=== PATIENT | female | born 1940 | race Caucasian/White ===

== ENCOUNTER 2018-08-04 18:02 | Inpatient (IN) | payer MEDICARE ==
[2018-08-04 19:30] LABS: BASO % 0.4 % (0.0-2.0); EOS % 0.1 % (0.0-4.0); HEMOGLOBIN 10.6 g/dL (11.0-16.0); LYMPH % 10.7 % (20.0-40.0); MEAN CELL VOLUME 85.6 fL (81.0-99.0); MEAN CORPUSCULAR HGB CONC 32.7 g/dL (33.0-37.0); MEAN PLATELET VOLUME 9.5 fL (7.2-11.7); MONO # 0.4 K/uL (0.0-0.8); NEUT # 7.5 K/uL (1.8-7.0); NEUT % 83.8 % (50.0-75.0); RBC 3.79 Mil/uL (3.80-5.20); RED CELL DISTRIBUTION WIDTH 13.4 % (11.5-14.5); WHITE BLOOD COUNT 8.9 K/uL (4.8-10.8)
[2018-08-04 19:41] LABS: ALB/GLOB RATIO 0.8 (1.0-2.1); ALBUMIN 4.1 g/dL (3.5-5.0); CALCIUM 9.2 mg/dl (8.6-10.4)
[2018-08-04 19:45] LABS: INR 1.1; PROTHROMBIN TIME 12.4 SECONDS (9.7-12.2)
[2018-08-04 19:54] LABS: CK-MB 1.07 ng/mL (0.0-3.38); TROPONIN I 0.045 ng/mL (0.00-0.120)
--- NOTE | 2018-08-04 21:09 | C.PDOC ---
History Of Present Illness 77 year old female is brought to the ED by EMS accompanied by her daughter for evaluation of chest pain that started earlier today. Patient reports chest pain radiated towards her left breast, worsens with palpation and deep breaths. Patient's daughter expresses concern of frequent falls due to patient having bruises to her forehead and right knee, however when asked patient denies any falls. Patient was given aspirin and SL nitro in the field. She is also c/o upper back pain. Patient denies fever, chills, cough, abdominal pain, nausea/vomiting, SOB, palpitations, rashes, injuries/falls. PMHx: DM, HTN, RA, dementia Time Seen by Provider: 08/04/18 18:49 Chief Complaint (Nursing): Chest Pain History Per: Patient, EMS, Family History/Exam Limitations: no limitations Onset/Duration Of Symptoms: Hrs Current Symptoms Are (Timing): Still Present Quality: "Pain" Exacerbating Factors: Movement, Deep Breathing Nitro Therapy Administered: 1, Per EMS Recent travel outside of the [place]: No Additional History Per: Patient Past Medical History Reviewed: Historical Data, Nursing Documentation, Vital Signs Vital Signs: Last Vital Signs Temp 97 F L 08/04/18 18:10 Pulse 105 H 08/04/18 18:10 Resp 20 08/04/18 18:10 BP 154/71 H 08/04/18 18:10 Pulse Ox 98 08/04/18 18:10 - Medical History PMH: Arthritis, Dementia, Diabetes, HTN, Osteoporosis Surgical History: Cholecystectomy Family History: States: Unknown Family Hx - Social History Hx Tobacco Use: No Hx Alcohol Use: No Hx Substance Use: No - Immunization History Hx Tetanus Toxoid Vaccination: No Hx Influenza Vaccination: No Hx Pneumococcal Vaccination: No Review Of Systems Constitutional: Negative for: Fever, Chills Eyes: Negative for: Vision Change Cardiovascular: Positive for: Chest Pain. Negative for: Palpitations Respiratory: Negative for: Shortness of Breath Gastrointestinal: Negative for: Nausea, Vomiting, Abdominal Pain Skin: Negative for: Rash Neurological: Negative for: Weakness, Numbness, Headache, Dizziness Physical Exam - Physical Exam Appears: Non-toxic, No Acute Distress Skin: Normal Color, Warm, Dry, No Rash Head: Normacephalic, Other (mid forehead mild contusion ) Eye(s): bilateral: Normal Inspection, PERRL, EOMI, Other (no raccoon eyes) Ear(s): Bilateral: Normal, Other (no gonzalez signs) Oral Mucosa: Moist Neck: Normal ROM, No Midline Cervical Tenderness, Supple Chest: Symmetrical, Tenderness (mid sternum to palpation) Cardiovascular: Rhythm Regular (mild tachycardic), Murmur (systolic 4/6) Respiratory: Normal Breath Sounds, No Rales, No Rhonchi, No Wheezing Gastrointestinal/Abdominal: Soft, No Tenderness, No Guarding, No Rebound Back: No CVA Tenderness Extremity: Normal ROM, No Tenderness, Capillary Refill (< 2 seconds), No Swelling Pulses: Left Dorsalis Pedis: Normal, Right Dorsalis Pedis: Normal Neurological/Psych: Oriented x3, Normal Speech, Normal Cognition, Other (no focal deficits) Gait: Steady ED Course And Treatment - Laboratory Results Result Diagrams: 08/04/18 19:26 08/04/18 19: Lab Results: PT 12.4 SECONDS (9.7-12.2) H 08/04/18: INR 1.1 08/04/18: APTT 26 SECONDS (21-34) 08/04/18 19: Troponin I 0.0450 ng/mL (0.00-0.120) 08/04/18: NT-Pro-B Natriuret Pep 532 pg/mL (0-900) 08/04/18 19: Total Bilirubin 0.6 mg/dL (0.2-1.3) 08/04/18 19: AST 23 U/L (14-36) 08/04/18: ALT 10 U/L (9-52) 08/04/18: Alkaline Phosphatase 57 U/L (38-126) 08/04/18 19: Total Protein 8.9 g/dL (6.3-8.3) H 08/04/18: Albumin 4.1 g/dL (3.5-5.0) 08/04/18: Globulin 4.8 gm/dL (2.2-3.9) H 08/04/18 19: Albumin/Globulin Ratio 0.8 (1.0-2.1) L 08/04/18 19: ECG: Interpreted By Me, Viewed By Me ECG Rhythm: Sinus Rhythm Interpretation Of ECG: normal axus, no acute ST/T wave changes Rate From EC (BPM) O2 Sat by Pulse Oximetry: 98 (ON RA) Pulse Ox Interpretation: Normal - CT Scan/US CT head Other Rad Studies (CT/US): Read By Radiologist, Radiology Report Reviewed CT/US Interpretation: CLINICAL HISTORY: Trauma. TECHNIQUE: Multiple axial brain CT scan sections were obtained from base to vertex without contrast administ ration. COMMENTS: The study shows normal configuration of sella turcica. There are no intra or extra-axial collections. There is no mass effect or midline shift. There is no evidence of hematoma formation. No hydrocephalus is present. No abnormal calcifications are noted. Changes of diffuse cerebellar and cerebral atrophy are noted with symmetrically dilated ventricles and cortical sulci. There are mild bilateral periventricular hypolucencies compatible with white matter ischemic disease. No significant other abnormalities are seen either in the posterior fossa or supratentorial compartment. There is mucosal thickening and partial opacification involving bilateral ethmoid air cells and m axillary sinuses consistent with chronic sinusitis. 1 cm mucoid retention cyst versus polyp is noted within the left maxillary sinus. IMPRESSION: 1. Diffuse age-appropriate cerebellar and cerebral atrophy. 2. Bilateral periventricular hypolucencies compatible with chronic white matter ischemic disease. 3. Sinusitis as above. 4. No evidence of acute intracranial pathology. Thank you for your kind referral of this patient. . Electronically signed on Aug 04, 2018 8:29:37 PM EST by: Donnie Jimenez M.D., ESME Certified By ABR & CBCCT. Fellowship Trained MRI and CT Specialist Progress Note: Plan: - CT head. - CXR. - LAbs. - EKG Disposition - Disposition Forms: [employer] ([place]ian) - Scribe Statement The provider has reviewed the documentation as recorded by the Scribe Jhon Moss All medical record entries made by the Scribe were at my direction and personally dictated by me. I have reviewed the chart and agree that the record accurately reflects my personal performance of the history, physical exam, medical decision making, and the department course for this patient. I have also personally directed, reviewed, and agree with the discharge instructions and disposition.
[2018-08-04] MEDS ORDERED: Iodixanol 320 MG/ML 100 ML BOTTLE IV ONE (22:06)
[2018-08-04] MEDS: Tramadol 25 mg PO PRN (23:45)
--- NOTE | 2018-08-05 01:19 | CP.PCM.HP ---
<Cornell Lopez - Last Filed: 08/05/18 03:42> History of Present Illness - History of Present Illness History of Present Illness: PGY-1H&P note for Dr Elias hospitalist service Patient is 77 year old female with pmhx of RA, OA, DM, HTN, HLD, catarats bilateral eyes that came to the ED today for chest pain and back pain that started at 4 pm. Chest pain is located on right and left side of chest, reproducible with palpation and worsens with breathing, Daughter Lucy is at bedside at time of encounter, states her mother has been at home for the past few days, and decided to leave the house today and walk in the cold. Daughter noticed patient had a new bruise like lesion in her right frontal area of face and in right knee after she came back home. Patient denies falling, states she has fallen in the past but a long time ago. Patient admits to dryness in both eyes and mouth. Denies fever, chills, headaches, abdominal pain, cough, n/v/d/c. PMD: Dr Anne Pmhx: RA, OA, DM, HTN, HLD, catarats b/l eyes Shx: cholecystitis All: Penicillin (rash), Bee sting, seafood (anaphylaxis) Sochx: denies smoking, alcohol or drug use fhx: brother (DM, CA stomach, parkison's) Present on Admission - Present on Admission Any Indicators Present on Admission: No Review of Systems - Review of Systems All systems: reviewed and no additional remarkable complaints except Review of Systems: as stated in HPI Past Patient History - Infectious Disease Hx of Infectious Diseases: None - Past Social History Smoking Status: Never Smoked - CARDIAC Hx Hypertension: Yes - NEUROLOGICAL Hx Dementia: Yes - ENDOCRINE/METABOLIC Hx Diabetes Mellitus Type 2: Yes - MUSCULOSKELETAL/RHEUMATOLOGICAL Hx Arthritis: Yes Hx Osteoporosis: Yes - PSYCHIATRIC Hx Substance Use: No - SURGICAL HISTORY Hx Cholecystectomy: Yes - ANESTHESIA Hx Anesthesia: Yes Hx Anesthesia Reactions: No Meds Allergies/Adverse Reactions: Allergies Allergy/AdvReac Type Severity Reaction Status Date / Time Penicillins Allergy Verified 10/08/15 14:02 venom-honey bee Allergy Verified 10/08/15 14:02 [bee venom (honey bee)] Physical Exam - Constitutional Appears: Non-toxic, No Acute Distress - Head Exam Head Exam: NORMAL INSPECTION, NORMOCEPHALIC Additional comments: mild right forehead bruise - Eye Exam Eye Exam: EOMI, Normal appearance Pupil Exam: NORMAL ACCOMODATION - ENT Exam ENT Exam: Mucous Membranes Dry, Normal Exam - Neck Exam Neck exam: Positive for: Normal Inspection - Respiratory Exam Respiratory Exam: Chest Wall Tenderness (to palpation on right, middle and left chest areas), Clear to Auscultation Bilateral, NORMAL BREATHING PATTERN. abs ent: Rales, Rhonchi, Wheezes - Cardiovascular Exam Cardiovascular Exam: REGULAR RHYTHM, +S1, +S2, Systolic Murmur - GI/Abdominal Exam GI & Abdominal Exam: Normal Bowel Sounds, Soft. absent: Distended, Tenderness - Extremities Exam Extremities exam: Positive for: full ROM, normal inspection, pedal pulses present. Negative for: pedal edema, tenderness - Neurological Exam Neurological exam: Alert, Oriented x3 - Psychiatric Exam Psychiatric exam: Anxious - Skin Skin Exam: Dry, Normal Color, Warm Additional comments: mild bruise on right knee anterior aspect Results - Vital Signs Recent Vital Signs: Last Vital Signs Temp 98.4 F 08/05/18 00:00 Pulse 70 08/05/18 00:00 Resp 20 08/05/18 00:00 BP 126/66 08/05/18 00:00 Pulse Ox 98 08/05/18 00:16 - Labs Result Diagrams: 08/04/18 19:26 08/04/18 19:26 Labs: Laboratory Results - last 24 hr 08/04/18 08/04/18 08/04/18 19:26 19:26 19:26 WBC 8.9 D RBC 3.79 L Hgb 10.6 L D Hct 32.4 L MCV 85.6 D MCH 28.0 MCHC 32.7 L RDW 13.4 Plt Count 197 MPV 9.5 Neut % (Auto) 83.8 H Lymph % (Auto) 10.7 L Ness % (Auto) 5.0 Eos % (Auto) 0.1 Baso % (Auto) 0.4 Neut # (Auto) 7.5 H Lymph # (Auto) 1.0 Ness # (Auto) 0.4 Eos # (Auto) 0.0 Baso # (Auto) 0.0 PT 12.4 H INR 1.1 APTT 26 Sodium 137 Potassium 4.5 Chloride 105 Carbon Dioxide 22 Anion Gap 14 BUN 20 H Creatinine 1.1 Est GFR ( Amer) 58 Est GFR (Non-Af Amer) 48 Random Glucose 164 H Calcium 9.2 Total Bilirubin 0.6 AST 23 ALT 10 Alkaline Phosphatase 57 Total Creatine Kinase 90 CK-MB (Mass) 1.07 Troponin I 0.0450 NT-Pro-B Natriuret Pep 532 Total Protein 8.9 H Albumin 4.1 Globulin 4.8 H Albumin/Globulin Ratio 0.8 L Lipase 08/04/18 21:45 WBC RBC Hgb Hct MCV MCH MCHC RDW Plt Count MPV Neut % (Auto) Lymph % (Auto) Ness % (Auto) Eos % (Auto) Baso % (Auto) Neut # (Auto) Lymph # (Auto) Ness # (Auto) Eos # (Auto) Baso # (Auto) PT INR APTT Sodium Potassium Chloride Carbon Dioxide Anion Gap BUN Creatinine Est GFR ( Amer) Est GFR (Non-Af Amer) Random Glucose Calcium Total Bilirubin AST ALT Alkaline Phosphatase Total Creatine Kinase CK-MB (Mass) Troponin I NT-Pro-B Natriuret Pep Total Protein Albumin Globulin Albumin/Globulin Ratio Lipase 134 Assessment & Plan - Assessment and Plan (Free Text) Assessment: 77 year old female pmhx of RA, OA, DM, HTN, HLD presenting with chest pain and back pain reproducible with palpation. Plan: Chest pain, back pain r/o ACS vs costochondritis vs aortic dissection EKG - NSR, normal axis, no acute ST/T wave changes vitals within normal limits CXray- pending official read Troponin x [address] dissection study - f/u official result repeat EKG and troponin in the am x 1 morphine 2mg IV x 1 in ER Tramadol 25mg Q6 PRN for pain Lipid panel crestor 10mg PO HS Rt side frontal head lesion, possible fall hx of falls Head CT - no evidence of acute intracranial pathology, diffuse age appropriate cerebral and cerebral atrophy fall risk protocol elevated gamma globulin levels r/o monoclonal gammopathy ordered protein electrophoresis - f/u Hx of HTN patient is normotensive hold home losartan at this time monitor BP Hx of DM accuchecks ACHS continue home metformin 500mg PO BID HBA1C - f/u Hx of HLD Patient takes lipitor 20mg PO crestor 10mg PO HS as lipitor not available Hx of gastritis patient take omeprazole 20mg PO daily protonix 40mg IVP Daily PPX DVT: heparin 5000 SC Q8, SCDs GI: protonix 40mg IVP daily Carb consistent diet Fall risk protocol PT/OT - f/u recs Plan discussed with Dr Curt Lopez, PGY-1 - Date & Time Date: 08/05/18 Time: 00:58 <Jaylon Elias - Last Filed: 08/05/18 07:03> Results - Vital Signs Recent Vital Signs: Last Vital Signs Temp 98.4 F 08/05/18 00:00 Pulse 70 08/05/18 00:00 Resp 20 08/05/18 00:00 BP 126/66 08/05/18 00:00 Pulse Ox 98 08/05/18 00:16 - Labs Result Diagrams: 08/04/18 19:26 08/04/18 19:26 Labs: Laboratory Results - last 24 hr 08/04/18 08/04/18 08/04/18 19:26 19:26 19:26 WBC 8.9 D RBC 3.79 L Hgb 10.6 L D Hct 32.4 L MCV 85.6 D MCH 28.0 MCHC 32.7 L RDW 13.4 Plt Count 197 MPV 9.5 Neut % (Auto) 83.8 H Lymph % (Auto) 10.7 L Ness % (Auto) 5.0 Eos % (Auto) 0.1 Baso % (Auto) 0.4 Neut # (Auto) 7.5 H Lymph # (Auto) 1.0 Ness # (Auto) 0.4 Eos # (Auto) 0.0 Baso # (Auto) 0.0 PT 12.4 H INR 1.1 APTT 26 Sodium 137 Potassium 4.5 Chloride 105 Carbon Dioxide 22 Anion Gap 14 BUN 20 H Creatinine 1.1 Est GFR ( Amer) 58 Est GFR (Non-Af Amer) 48 Random Glucose 164 H Calcium 9.2 Total Bilirubin 0.6 AST 23 ALT 10 Alkaline Phosphatase 57 Total Creatine Kinase 90 CK-MB (Mass) 1.07 Troponin I 0.0450 NT-Pro-B Natriuret Pep 532 Total Protein 8.9 H Albumin 4.1 Globulin 4.8 H Albumin/Globulin Ratio 0.8 L Lipase 08/04/18 21:45 WBC RBC Hgb Hct MCV MCH MCHC RDW Plt Count MPV Neut % (Auto) Lymph % (Auto) Ness % (Auto) Eos % (Auto) Baso % (Auto) Neut # (Auto) Lymph # (Auto) Ness # (Auto) Eos # (Auto) Baso # (Auto) PT INR APTT Sodium Potassium Chloride Carbon Dioxide Anion Gap BUN Creatinine Est GFR ( Amer) Est GFR (Non-Af Amer) Random Glucose Calcium Total Bilirubin AST ALT Alkaline Phosphatase Total Creatine Kinase CK-MB (Mass) Troponin I NT-Pro-B Natriuret Pep Total Protein Albumin Globulin Albumin/Globulin Ratio Lipase 134 Attending/Attestation - Attestation I have personally seen and examined this patient.: Yes I have fully participated in the care of the patient.: Yes I have reviewed all pertinent clinical information: Yes Notes (Text): 08/05/18 06:57 Atypical chest pain reproducible in back and mid chest on palpation, clinically appears as originating for spine, no fractures on CT, bruise on forehead and right knee, patient denying fall, but likely happened, as would not like to mention family or else may get restricted to go alone outside. Elevated gamma globulins, anemia noticed h/o arthralgic pains H/o dm not compliant with allopathic meds, takes herbal and homeopathic meds. Plan Pain control, pt/ot, Counselled about compliance, poly pharmacy protein electrophoresis serial troponin hemoglobin a1c see orders for detail.
[2018-08-05 07:37] LABS: BASO % 0.3 % (0.0-2.0); EOS % 0.2 % (0.0-4.0); HEMOGLOBIN 10.3 g/dL (11.0-16.0); LYMPH # 1.2 K/uL (1.0-4.3); LYMPH % 24.1 % (20.0-40.0); MEAN CELL VOLUME 86.8 fL (81.0-99.0); MEAN CORPUSCULAR HEMOGLOBIN 28.9 pg (27.0-31.0); MEAN CORPUSCULAR HGB CONC 33.3 g/dL (33.0-37.0); MEAN PLATELET VOLUME 10.3 fL (7.2-11.7); MONO # 0.4 K/uL (0.0-0.8); MONO % 7.7 % (0.0-10.0); NEUT # 3.5 K/uL (1.8-7.0); NEUT % 67.7 % (50.0-75.0); NRBC % 0.1 % (0.0-2.0); RBC 3.56 Mil/uL (3.80-5.20); RED CELL DISTRIBUTION WIDTH 13.6 % (11.5-14.5); WHITE BLOOD COUNT 5.1 K/uL (4.8-10.8)
[2018-08-05 08:00] LABS: ALB/GLOB RATIO 0.8 (1.0-2.1); ALBUMIN 3.9 g/dL (3.5-5.0); ALT/SGPT 9 U/L (9-52); AST/SGOT 30 U/L (14-36); BLOOD UREA NITROGEN 19 mg/dL (7-17); CALCIUM 9.3 mg/dl (8.6-10.4); GFR NON-AFRICAN AMERICAN > 60; HDL CHOLESTEROL 40 mg/dL (30-70)
[2018-08-05 08:03] LABS: LDL CHOLESTEROL 147 mg/dL (0-129)
--- NOTE | 2018-08-05 08:17 | CT ---
PROCEDURE: CT Angiography Chest, Abdomen and Pelvis with and without intravenous contrast HISTORY: chest pain, back pain COMPARISON: Comparison is made to the previous CT of the abdomen and pelvis dated 06/16/2012 TECHNIQUE: Contiguous axial images of the chest, abdomen and pelvis were obtained in the phase of aortic enhancement. A noncontrast enhanced CT of the chest was also obtained to evaluate for possible intramural thrombus. Coronal and sagittal reformats were generated. IV dose administered: 100 mL of Visipaque 320 intravenously Radiation dose: Total exam DLP = . mGy-cm. This CT exam was performed using one or more of the following dose reduction techniques: Automated exposure control, adjustment of the mA and/or kV according to patient size, and/or use of iterative reconstruction technique. FINDINGS: CT ANGIOGRAPHY OF THE CHEST WITH & WITHOUT CONTRAST: AORTA (CHEST AND ABDOMEN): The thoracic and abdominal aorta are unremarkable, without aneurysm, dissection or rupture. There are scattered foci of intramural thrombus identified in the thoracic aorta on the non-contrast ct of the chest. Atherosclerotic calcification and foci of mural thickening noted more prominent in the abdominal aorta The celiac axis, superior mesenteric artery, inferior mesenteric artery and the renal arteries are widely patent. Atherosclerotic disease and foci of mural thickening noted in the common internal and external iliac arteries LUNGS: No evidence of consolidation or infiltrate in the lungs mild bibasilar atelectasis. MEDIASTINUM: Unremarkable. Normal caliber aorta and pulmonary arterial trunk. No aortic dissection. The heart is mildly enlarged. LYMPH NODES: No evidence of significant lymphadenopathy PLEURA: Unremarkable. No pneumothorax. No pleural fluid. BONES: Unremarkable. OTHER FINDINGS: None. CT ANGIOGRAPHY OF THE ABDOMEN AND PELVIS WITH CONTRAST: LIVER: Unremarkable. No gross lesion or ductal dilatation. GALLBLADDER AND BILE DUCTS: Status post cholecystectomy. The common bile duct is mildly dilated likely due to prior cholecystectomy. PANCREAS: Unremarkable. No gross lesion or ductal dilatation. SPLEEN: Unremarkable. ADRENALS: Unremarkable. No mass. KIDNEYS AND URETERS: No evidence of hydronephrosis or enhancing mass lesion. Foci of cortical thinning noted. There is low-attenuation cyst at the midpole of the left kidney measures 1.2 centimeter. The ureters are not dilated. VASCULATURE: Unremarkable. No aortic aneurysm. Foci of atherosclerotic calcification and mural plaques are noted more prominent at the mid and distal abdominal aorta. STOMACH AND BOWEL: Questionable mild thickening of the small bowel loops in the lower abdomen and pelvis. Correlate clinically for possible mild enteritis. No obstruction. No gross mural thickening. APPENDIX: No evidence of appendicitis. PERITONEUM: Unremarkable. No free fluid. No free air. LYMPH NODES: Unremarkable. No enlarged lymph nodes. BLADDER: Unremarkable. REPRODUCTIVE: Unremarkable. There is a pessary seen in the pelvis. BONES: No acute fracture. OTHER FINDINGS: None. IMPRESSION: No evidence of aortic dissection or aneurysmal dilatation of the thoracic and abdominal aorta. No evidence of acute pathology in the chest and abdomen. Incidental findings as discussed above. Preliminary report contains concordant findings was submitted by [facility] Radiology.
[2018-08-05] MEDS: Tramadol 25 mg PO PRN ×2 (09:07→20:06)
--- NOTE | 2018-08-05 10:03 | CT ---
Date of service: 08/04/2018 PROCEDURE: CT HEAD WITHOUT CONTRAST. HISTORY: HEAD CONTUSION, R/O BLEED COMPARISON: None available. TECHNIQUE: Axial computed tomography images were obtained through the head/brain without intravenous contrast. Radiation dose: Total exam DLP = 1033.31 mGy-cm. This CT exam was performed using one or more of the following dose reduction techniques: Automated exposure control, adjustment of the mA and/or kV according to patient size, and/or use of iterative reconstruction technique. FINDINGS: HEMORRHAGE: No intracranial hemorrhage. BRAIN: No mass effect or edema. [id number]-[id number] volume loss is noted. Moderate to extensive periventricular and subcortical white matter changes likely represent chronic microvascular ischemic disease. VENTRICLES: Unremarkable. No hydrocephalus. CALVARIUM: Unremarkable. PARANASAL SINUSES: Mild mucosal thickening in the ethmoid and maxillary sinuses noted. MASTOID AIR CELLS: Unremarkable as visualized. No inflammatory changes. OTHER FINDINGS: Atherosclerotic calcification noted at the distal vertebral basilar and distal internal carotid arteries IMPRESSION: No evidence of acute intracranial hemorrhage mass effect or midline shift. Additional incidental findings as discussed above. Preliminary report contains concordant findings was submitted by [facility] Radiology.
--- NOTE | 2018-08-05 14:18 | CP.PCM.PN ---
"<Jose Oglesby - Last Filed: 08/05/18 18:24> Subjective - Date & Time of Evaluation Date of Evaluation: 08/05/18 Time of Evaluation: 08:30 - Subjective Subjective: Patient seen and examined with daughter at bedside. No overnight events reported. Patient reports chest pain with radiation to the back. Her chest pain is improved from yesterday. She denies any headache, SOB, abdominal pain, n/v, changes in bowel habits or urinary symptoms. Objective - Vital Signs/Intake and Output Vital Signs (last 24 hours): Temp Pulse Resp BP Pulse Ox 97.9 F 60 20 145/72 98 08/05/18 08:00 08/05/18 08:00 08/05/18 08:00 08/05/18 08:00 08/05/18 08:00 - Medications Medications: Current Medications Enoxaparin Sodium (Lovenox) 40 mg SC DAILY [facility] Heparin Sodium (Porcine) (Heparin) 5,000 units SC Q8 [facility] Stop: 08/06/18 00:00 Last Admin: 08/05/18 13:30 Dose: 5,000 units Ketorolac Tromethamine (Toradol) 30 mg IVP Q6 [facility] Stop: 08/06/18 18:01 Last Admin: 08/05/18 13:31 Dose: 30 mg Metformin HCl (Glucophage) 500 mg PO BID [facility] Last Admin: 08/05/18 09:06 Dose: 500 mg Pantoprazole Sodium (Protonix Inj) 40 mg IVP DAILY [facility] Last Admin: 08/05/18 09:06 Dose: 40 mg Rosuvastatin Calcium (Crestor) 10 mg PO HS [facility] Last Admin: 08/04/18 23:49 Dose: 10 mg Tramadol HCl (Ultram) 25 mg PO Q6H PRN PRN Reason: Pain, severe (8-10) Last Admin: 08/05/18 09:07 Dose: 25 mg - Labs Labs: 08/05/18 07:24 08/05/18 07:24 PT 12.4 SECONDS (9.7-12.2) H 08/04/18 19:26 INR 1.1 08/04/18 19:26 APTT 26 SECONDS (21-34) 08/04/18 19:26 - Additional Findings Additional findings: - Constitutional Appears: Non-toxic, No Acute Distress - Head Exam Head Exam: NORMAL INSPECTION, NORMOCEPHALIC Additional comments: mild right forehead bruise - Eye Exam Eye Exam: EOMI, Normal appearance Pupil Exam: NORMAL ACCOMODATION - ENT Exam ENT Exam: Mucous Membranes Dry, Normal Exam - Neck Exam Neck exam: Positive for: Normal Inspection - Respiratory Exam Respiratory Exam: Chest Wall Tenderness (to palpation on right, middle and left chest areas), Clear to Auscultation Bilateral, NORMAL BREATHING PATTERN. absent: Rales, Rhonchi, Wheezes - Cardiovascular Exam Cardiovascular Exam: REGULAR RHYTHM, +S1, +S2, Systolic Murmur - GI/Abdominal Exam GI & Abdominal Exam: Normal Bowel Sounds, Soft. absent: Distended, Tenderness - Extremities Exam Extremities exam: Positive for: full ROM, normal inspection, pedal pulses present. Negative for: pedal edema, tenderness - MSK Exam MSK exam: Positive for: Thoracic paraspinal tenderness. - Neurological Exam Neurological exam: Alert, Oriented x3 - Psychiatric Exam Psychiatric exam: Anxious - Skin Skin Exam: Dry, Normal Color, Warm Additional comments: mild bruise on right knee anterior aspect, non-tender Assessment and Plan - Assessment and Plan (Free Text) Assessment: 77 year old female PMHx of RA, OA, DM, HTN, HLD admitted for evaluation and treatment of chest pain to r/o ACS. Plan: Chest pain, back pain r/o ACS vs costochondritis vs aortic dissection EKG - NSR, normal axis, no acute ST/T wave changes CXR (Admission): No Active Disease CT dissection study (Admission) - NEGATIVE for dissection. ECHO (08/05/18): PENDING Official Read. Shows Normal EF. Troponin - NEGATIVE x 3 Meds: Tramadol 25mg PO Q6H PRN | Toradol 30mg Q6H PRN Rt side frontal head lesion, possible fall hx of falls Head CT (Admission) - no evidence of acute intracranial pathology, diffuse age appropriate cerebral and cerebral atrophy fall risk protocol Physical Therapy Eval, F/U Recs. elevated gamma globulin levels r/o monoclonal gammopathy SPEP & UPEP Ordered, F/U HTN patient is normotensive hold home losartan at this time monitor BP Diabetes M. Type II accuchecks ACHS continue home metformin 500mg PO BID Monitor and consider sliding scale. Hyperlipidemia crestor 10mg PO HS (Lipitor 20mg PO, not in formulary) Hx of gastritis patient take omeprazole 20mg PO daily protonix 40mg IVP Daily PPX DVT: heparin 5000 SC Q8, SCDs GI: protonix 40mg IVP daily Carb consistent diet Fall risk protocol PT/OT - f/u recs Dispo: Awaiting PT recs before DC. Patient discussed with Attending Jose Oglesby, PGY-2 <Saúl Dobson - Last Filed: 08/06/18 07:38> Objective - Vital Signs/Intake and Output Vital Signs (last 24 hours): Temp Pulse Resp BP Pulse Ox 97.6 F 78 20 148/71 98 08/05/18 23:20 08/05/18 23:20 08/05/18 23:20 08/05/18 23:20 08/05/18 23:20 Intake and Output: 08/06/18 08/06/18 06:59 18:59 Intake Total Balance - Medications Medications: Current Medications Enoxaparin Sodium (Lovenox) 40 mg SC DAILY [facility] Ketorolac Tromethamine (Toradol) 30 mg IVP Q6 PRN PRN Reason: Pain, Mild-Severe (1-10) Last Admin: 08/06/18 06:42 Dose: 30 mg Metformin HCl (Glucophage) 500 mg PO BID [facility] Last Admin: 08/05/18 17:59 Dose: 500 mg Pantoprazole Sodium (Protonix Inj) 40 mg IVP DAILY [facility] Last Admin: 08/05/18 09:06 Dose: 40 mg Rosuvastatin Calcium (Crestor) 10 mg PO HS [facility] Last Admin: 08/05/18 21:35 Dose: 10 mg Tramadol HCl (Ultram) 25 mg PO Q6H PRN PRN Reason: Pain, severe (8-10) Last Admin: 08/05/18 20:06 Dose: 25 mg - Labs Labs: 08/05/18 07:24 08/05/18 07:24 PT 12.4 SECONDS (9.7-12.2) H 08/04/18 19:26 INR 1.1 08/04/18 19:26 APTT 26 SECONDS (21-34) 08/04/18 19:26 Attending/Attestation - Attestation I have personally seen and examined this patient.: Yes I have fully participated in the care of the patient.: Yes I have reviewed all pertinent clinical information, including history, physical exam and plan: Yes Notes (Text): 08/06/18 07:30 Medical attending: Patient was seen and examined by me with the medical residents Agree with the above note by the residents The patient was awake and alert - we were able to communicate However family was not present when I came. There was family earlier in the morning I was told I did call the two numbers in the chart however one was not functioning and another the mailbox was full Reguardless the patient denies falling. She tells us she walked out of the house on her own and walked several blocks to a medical store and then back. She reports that as soon as she came back to the house she seemed to have developed chest pain and someone passing by, a stranger, was able to help her into the house but then they left and she was alone with the chest pain. The chest pain is still reproducible on exam. troponin have been negative x 3. When pressing her chest she says it hurts a lot even to light palpiation. Reportedly the family was concerned of new bruises appearing on the patient's body and think she has fallen. The patient denies falling. Supposedly PT came by and saw the patient, however pending report The CT scan of the head, and of the chest were negative. Troponins negative, and also the chest xray did not suggest broken ribs An echo was done, pending results at this time It was difficult to speak with the patient as she appears very anxious and under a lot of stress. Because the pain appears musculoskeltal in nature she is on toradol for pain control. Hopefully family will be by again Saúl Dobson"
--- NOTE | 2018-08-05 14:37 | RAD ---
Date of service: 08/04/2018 PROCEDURE: CHEST RADIOGRAPH, 1 VIEW HISTORY: CP COMPARISON: Comparison is made to the previous study dated 03/23/2016 FINDINGS: LUNGS: Clear. PLEURA: No pneumothorax or pleural fluid seen. CARDIOVASCULAR: No aortic atherosclerotic calcification present. Normal. OSSEOUS STRUCTURES: No significant abnormalities. VISUALIZED UPPER ABDOMEN: Normal. OTHER FINDINGS: None. IMPRESSION: No active disease.
--- NOTE | 2018-08-05 16:30 | CARD ---
APPROVED REPORT Date of service: 08/05/2018 EXAM: Two-dimensional and M-mode echocardiogram with Doppler and color Doppler. INDICATION Chest Pain RISK FACTORS Hypertension Hyperlipidemia Diabetes 2D DIMENSIONS IVSd0.8 (0.7-1.1cm)Aortic Root (2D)2.5 (2.0-3.7cm) LVDd4.4 (3.9-5.9cm)LVOT Diameter1.9 (1.8-2.4cm) PWd1.0 (0.7-1.1cm)LA Lfifdn70 (18-58mL) LVDs3.2 (2.5-4.0cm)FS (%) 27.1 % LVEF (%)56.0 (>50%)LVEF (Balderas's)66.73 % IVC0.00 cm M-Mode DIMENSIONS Left Atrium (MM)3.19 (2.5-4.0cm)IVSd0.49 (0.7-1.1cm) Aortic Root2.89 (2.2-3.7cm)LVDd5.88 (4.0-5.6cm) Aortic Cusp Exc.0.79 (1.5-2.0cm)PWd0.47 (0.7-1.1cm) FS (%) 33 %LVDs3.96 (2.0-3.8cm) LVEF (%)60 (>50%) Aortic Valve AoV Peak Tzfxtswm448.1cm/sAoV VTI78.2cmAO Peak GR.37mmHg LVOT Peak Bnpaskij85.6cm/sLVOT VTI24.94cmAO Mean GR.21mmHg BENNY (VMAX)0.42hb7UVZ (VTI)0.27bo1OI P 1/2 Pixc293up Mitral Valve MV E Tdhtslwo476.9cm/sMV A Iugsmhnu420.5cm/sE/A ratio1.0 TDI Lateral E' Peak V5.77cm/sMedial E' Peak V4.54cm/sE/Lateral E'18.5 E/Medial E'23.5 Tricuspid Valve TR Peak Cvcvpufc810oy/sTR Peak Gr.23qwZvQKEH00zuPn LEFT VENTRICLE The left ventricle is normal size. There is borderline concentric left ventricular hypertrophy. Left ventricle systolic function is normal. The Ejection Fraction is 60-65%. There is normal LV segmental wall motion. Transmitral Doppler flow pattern is Grade I-abnormal relaxation pattern. There is no ventricular septal defect visualized. RIGHT VENTRICLE The right ventricle is normal size. The right ventricular systolic function is normal. ATRIA The left atrium is mildly dilated. The right atrium size is normal. AORTIC VALVE The aortic valve is mildly to moderately sclerotic. The aortic valve is tri-cuspid. There is moderate aortic regurgitation. There is severe valvular aortic stenosis. Calculated aortic valve area is 1.0 cm2 with maximum pressure gradient of 35 mmHg and mean pressure gradient of 19 mmHg. MITRAL VALVE Mitral annular calcification is mild. There is no evidence of mitral valve prolapse. Mitral regurgitation is trace. TRICUSPID VALVE The tricuspid valve is normal in structure. There is mild tricuspid regurgitation. Right ventricular systolic pressure is estimated at 40-50 mmHg. There is moderate pulmonary hypertension. PULMONIC VALVE The pulmonic valve is not well visualized. There is no pulmonic valvular regurgitation. GREAT VESSELS The aortic root is normal in size. The ascending aorta is normal in size. The IVC is normal in size and collapses >50% with inspiration. PERICARDIAL EFFUSION There is no pericardial effusion. <Conclusion> There is borderline concentric left ventricular hypertrophy. Left ventricle systolic function is normal. The Ejection Fraction is 60-65%. Transmitral Doppler flow pattern is Grade I-abnormal relaxation pattern. There is moderate aortic regurgitation. There is severe valvular aortic stenosis. There is moderate pulmonary hypertension.
[2018-08-05] MEDS ORDERED: Simethicone 80 mg Chewtab PO ONE (20:14)
[2018-08-06] MEDS: Enoxaparin 40 mg Syringe SC SCH (09:05)
--- NOTE | 2018-08-06 09:28 | CP.PCM.PN ---
"Subjective - Date & Time of Evaluation Date of Evaluation: 08/06/18 Time of Evaluation: 09:48 - Subjective Subjective: Patient seen and examined. Chest pain and epigastric pain reported overnight which improved by morning. During night shift supervisor, patient received Simethcone (21:35) and and Toradol (6:42AM). Objective - Vital Signs/Intake and Output Vital Signs (last 24 hours): Temp Pulse Resp BP Pulse Ox 97.9 F 63 20 140/68 97 08/06/18 07:00 08/06/18 07:50 08/06/18 07:00 08/06/18 07:00 08/06/18 07:00 Intake and Output: 08/06/18 08/06/18 06:59 18:59 Intake Total Balance - Medications Medications: Current Medications Enoxaparin Sodium (Lovenox) 40 mg SC DAILY [facility] Last Admin: 08/06/18 09:05 Dose: 40 mg Ketorolac Tromethamine (Toradol) 30 mg IVP Q6 PRN PRN Reason: Pain, Mild-Severe (1-10) Last Admin: 08/06/18 06:42 Dose: 30 mg Metformin HCl (Glucophage) 500 mg PO BID [facility] Last Admin: 08/06/18 09:06 Dose: 500 mg Pantoprazole Sodium (Protonix Inj) 40 mg IVP DAILY [facility] Last Admin: 08/06/18 09:05 Dose: 40 mg Rosuvastatin Calcium (Crestor) 10 mg PO HS [facility] Last Admin: 08/05/18 21:35 Dose: 10 mg Tramadol HCl (Ultram) 25 mg PO Q6H PRN PRN Reason: Pain, severe (8-10) Last Admin: 08/05/18 20:06 Dose: 25 mg - Labs Labs: 08/05/18 07:24 08/05/18 07:24 PT 12.4 SECONDS (9.7-12.2) H 08/04/18 19:26 INR 1.1 08/04/18 19:26 APTT 26 SECONDS (21-34) 08/04/18 19:26 - Additional Findings Additional findings: - Constitutional Appears: Non-toxic, No Acute Distress - Head Exam Head Exam: NORMAL INSPECTION, NORMOCEPHALIC Additional comments: mild right forehead bruise - Eye Exam Eye Exam: EOMI, Normal appearance Pupil Exam: NORMAL ACCOMODATION - ENT Exam ENT Exam: Mucous Membranes Dry, Normal Exam - Neck Exam Neck exam: Positive for: Normal Inspection - Respiratory Exam Respiratory Exam: Chest Wall Tenderness (to palpation on right, middle and left chest areas), Clear to Auscultation Bilateral, NORMAL BREATHING PATTERN. absent: Rales, Rhonchi, Wheezes - Cardiovascular Exam Cardiovascular Exam: REGULAR RHYTHM, +S1, +S2, Systolic Murmur - GI/Abdominal Exam GI & Abdominal Exam: Normal Bowel Sounds, Soft. absent: Distended, Tenderness - Extremities Exam Extremities exam: Positive for: full ROM, normal inspection, pedal pulses present. Negative for: pedal edema, tenderness - MSK Exam MSK exam: Positive for: Thoracic paraspinal tenderness. - Neurological Exam Neurological exam: Alert, Oriented x3 - Psychiatric Exam Psychiatric exam: Anxious Assessment and Plan - Assessment and Plan (Free Text) Assessment: 77 year old female PMHx of RA, OA, DM, HTN, HLD admitted for evaluation and treatment of chest pain to r/o ACS. Plan: Chest pain, back pain r/o ACS vs costochondritis vs aortic dissection EKG - NSR, normal axis, no acute ST/T wave changes CXR (Admission): No Active Disease CT dissection study (Admission) - NEGATIVE for dissection. ECHO (08/05/18): Borderline LVH. EF 60-65%, Grade I-abnormal relaxation Pattern. Moderate Aortic Regurgitation, Severe valvular aortic Stenosis, Moderate Pulm. HTN. Troponin - NEGATIVE x 3 Meds: Tramadol 25mg PO Q6H PRN | Toradol 30mg Q6H PRN Aortic Stenosis (Severe) ECHO (08/05/18): Borderline LVH. EF 60-65%, Grade I-abnormal relaxation Pattern. Moderate Aortic Regurgitation, Severe valvular aortic Stenosis, Moderate Pulm. HTN. Cardiology Consulted (Dr. Puente), F/U Recs. Rt side frontal head lesion, possible fall hx of falls Head CT (Admission) - no evidence of acute intracranial pathology, diffuse age appropriate cerebral and cerebral atrophy fall risk protocol Physical Therapy Eval, F/U Recs. elevated gamma globulin levels r/o monoclonal gammopathy SPEP & UPEP Ordered, F/U HTN patient is normotensive hold home losartan at this time monitor BP Diabetes M. Type II accuchecks ACHS continue home metformin 500mg PO BID Monitor and consider sliding scale. Hyperlipidemia crestor 10mg PO HS (Lipitor 20mg PO, not in formulary) Hx of gastritis patient take omeprazole 20mg PO daily protonix 40mg IVP Daily PPX DVT: heparin 5000 SC Q8, SCDs GI: protonix 40mg IVP daily Carb consistent diet Fall risk protocol PT/OT - f/u recs Dispo: Patient changed from observation to inpatient status. Patient will need further evaluation and possible additional workup regarding the newly found Aortic Stenosis which she is symptomatic of (Dsypnea on exertion and chest pain). Cardiology was Consulted. Patient is on home meds with unknown dosages. Daughter has been contacted and she stated she will fax or bring a list of the home meds so they can be restarted. Patient discussed with Attending Jose Oglesby, PGY-2"
[2018-08-06 11:03] LABS: BASO % 0.3 % (0.0-2.0); EOS # 0.1 K/uL (0.0-0.7); EOS % 1.6 % (0.0-4.0); HEMOGLOBIN 10.5 g/dL (11.0-16.0); LYMPH # 1.1 K/uL (1.0-4.3); MEAN CORPUSCULAR HEMOGLOBIN 28.7 pg (27.0-31.0); MEAN PLATELET VOLUME 10.6 fL (7.2-11.7); MONO # 0.4 K/uL (0.0-0.8); MONO % 7.6 % (0.0-10.0); NEUT # 3.7 K/uL (1.8-7.0); NEUT % 69.5 % (50.0-75.0); RBC 3.65 Mil/uL (3.80-5.20); WHITE BLOOD COUNT 5.4 K/uL (4.8-10.8)
[2018-08-06 11:23] LABS: ALB/GLOB RATIO 0.8 (1.0-2.1); ALBUMIN 3.9 g/dL (3.5-5.0); ALT/SGPT < 6 U/L (9-52); AST/SGOT 25 U/L (14-36); BLOOD UREA NITROGEN 31 mg/dL (7-17); CALCIUM 9.2 mg/dl (8.6-10.4); GFR NON-AFRICAN AMERICAN 36
[2018-08-06] MEDS: Tramadol 25 mg PO PRN (21:50)
[2018-08-07 07:47] LABS: ALB/GLOB RATIO 0.8 (1.0-2.1); ALBUMIN 3.8 g/dL (3.5-5.0)
--- NOTE | 2018-08-07 07:56 | CP.PCM.PN ---
Subjective - Date & Time of Evaluation Date of Evaluation: 08/07/18 Time of Evaluation: 07:54 - Subjective Subjective: Patient seen/examined. full consult to follow echocardiogram reviewed. Patient has severe aortic stenosis. She will benefit from evaluation of coronary anatomy. Indications for AVR were discussed with the patient. Patient wishes to wait for her daughter before consenting to cardiac cath. Continue medical therapy. Avoid afterload reduction given . Objective - Vital Signs/Intake and Output Vital Signs (last 24 hours): Temp Pulse Resp BP Pulse Ox 98 F 65 18 127/59 L 96 08/06/18 23:35 08/06/18 23:40 08/06/18 23:35 08/06/18 23:35 08/06/18 23:35 Intake and Output: 08/07/18 08/07/18 06:59 18:59 Intake Total 300 Balance 300 - Medications Medications: Current Medications Enoxaparin Sodium (Lovenox) 40 mg SC DAILY [facility] Last Admin: 08/06/18 09:05 Dose: 40 mg Ketorolac Tromethamine (Toradol) 30 mg IVP Q6 PRN PRN Reason: Pain, Mild-Severe (1-10) Last Admin: 08/06/18 06:42 Dose: 30 mg Metformin HCl (Glucophage) 500 mg PO BID [facility] Last Admin: 08/06/18 17:41 Dose: 500 mg Pantoprazole Sodium (Protonix Inj) 40 mg IVP DAILY [facility] Last Admin: 08/06/18 09:05 Dose: 40 mg Rosuvastatin Calcium (Crestor) 10 mg PO HS [facility] Last Admin: 08/06/18 21:49 Dose: 10 mg Tramadol HCl (Ultram) 25 mg PO Q6H PRN PRN Reason: Pain, severe (8-10) Last Admin: 08/06/18 21:50 Dose: 25 mg - Labs Labs: 08/06/18 10:58 08/07/18 07:27 PT 12.4 SECONDS (9.7-12.2) H 08/04/18 19:26 INR 1.1 08/04/18 19:26 APTT 26 SECONDS (21-34) 08/04/18 19:26
--- NOTE | 2018-08-07 07:56 | CP.PCM.CON ---
History of Present Illness - History of Present Illness History of Present Illness: patient seen 08/07/18 756 am I was asked to see patient by Dr Amato Patient is a 77 year old female with HTn who presents with dyspnea on exertion. Symptoms occur with walking one block. She has noted falls. Echocardiogram revealed severe . Consultation was requested. Review of Systems - Constitutional Constitutional: absent: As Per HPI, Anorexia, Chills, Daytime Sleepiness, Excessive Sweating, Fatigue, Fever, Frequent Falls, Headache, Increased Appetite, Lethargy, Malaise, Night Sweats, Snoring, Sleep Apnea, Weight Gain, Weight Loss, Weakness, Other - EENT Eyes: absent: As Per HPI, Blind Spots, Blurred Vision, Change in Vision, Decreased Night Vision, Diplopia, Discharge, Dry Eye, Exophthalmos, Floaters, Irritation, Itchy Eyes, Loss of Peripheral Vision, Pain, Photophobia, Requires Corrective Lenses, Sees Flashes, Spots in Vision, Tunnel Vision, Other Visual Disturbances, Loss of Vision, Other Ears: absent: As Per HPI, Decreased Hearing, Ear Discharge, Ear Pain, Tinnitus, Abnormal Hearing, Disequilibrium, Dizziness, Other Nose/Mouth/Throat: absent: As Per HPI, Epistaxis, Nasal Congestion, Nasal Discharge, Nasal Obstruction, Nasal Trauma, Nose Pain, Post Nasal Drip, Sinus Pain, Sinus Pressure, Bleeding Gums, Change in Voice, Dental Pain, Dry Mouth, D ysphagia, Halitosis, Hoarsness, Lip Swelling, Mouth Lesions, Mouth Pain, Odynophagia, Sore Throat, Throat Swelling, Tongue Swelling, Facial Pain, Neck Pain, Neck Mass, Other - Cardiovascular Cardiovascular: Dyspnea - Respiratory Respiratory: absent: As Per HPI, Cough, Dyspnea, Hemoptysis, Dyspnea on Exertion, Wheezing, Snoring, Stridor, Pain on Inspiration, Chest Congestion, Excessive Mucous Production, Change in Mucous Color, Pain with Coughing, Other - Gastrointestinal Gastrointestinal: absent: As Per HPI, Abdominal Pain, Belching, Bloating, Change in Bowel Habits, Change in Stool Character, Coffee Ground Emesis, Constipation, Cramping, Diarrhea, Dyspepsia, Dysphagia, Early Satiety, Excessive Flatus, Fecal Incontinence, Heartburn, Hematemesis, Hematochezia, Loose Stools, Melena, Nausea, Odynophagia, Temesmus, Vomiting, Other - Genitourinary Genitourinary: absent: As Per HPI, Change in Urinary Stream, Difficulty Urinating, Dysuria, Flank Pain, Hematuria, Pyuria, Nocturia, Urinary Incontinence, Urinary Frequency, Urinary Hesitance, Urinary Urgency, Voiding Freq/Small Amts, Freq UTI, Hx Renal/Bladder Calculi, Hx /Renal Surgery, Bladder Distension, Other - Musculoskeletal Musculoskeletal: absent: As Per HPI, Abnormal Gait, Arthralgias, Atrophy, Back Pain, Deformity, Joint Swelling, Limited Range of Motion, Loss of Height, Muscle Cramps, Muscle Weakness, Myalgias, Neck Pain, Numbness, Radiating Pain into Limb, Stiffness, Tingling, Other - Integumentary Integumentary: absent: As Per HPI, Acne, Alopecia, Bleeding Lesions, Change in Hair, Change in Nails, Change in Pigmentation, Changing Lesions, Dry Skin, Erythema, Furuncle, Hirsutism, Lesions, New Lesions, Non-Healing Lesions, Photosensitivity, Pruritus, Rash, Skin Pain, Skin Ulcer, Sores, Striae, Swelling, Unusual Bruising, Wounds, Jaundice, Other - Neurological Neurological: absent: As Per HPI, Abnormal Gait, Abnormal Hearing, Abnormal Movements, Abnormal Speech, Behavioral Changes, Burning Sensations, Confusion, Convulsions, Disequilibrium, Dizziness, Numbness, Focal Weakness, Frequent Falls, Headaches, Lack of Coordination, Loss of Vision, Memory Loss, Paresthesias, Radicular Pain, Restless Legs, Sensory Deficit, Syncope, Tingling, Tremor, Vertigo, Weakness, Other Visual Disturbances, Other - Psychiatric Psychiatric: absent: As Per HPI, Abnormal Sleep Pattern, Anhedonia, Anxiety, Auditory Hallucinations, Behavioral Changes, Change in Appetite, Change in Libido, Confusion, Depression, Difficulty Concentrating, Hallucinations, Homicidal Ideation, Hopelessness, Irritability, Memory Loss, Mood Swings, Panic Attacks, Paranoia, Suicidal Ideation, Visual Hallucinations, Tactile Hallucinations, Other - Endocrine Endocrine: absent: As Per HPI, Change in Body Appearance, Change in Libido, Cold Intolorance, Deepening of Voice, Excessive Sweating, Fatigue, Flushing, Heat Intolorance, Increase in Ring/Shoe/Hat Size, Palpitations, Polydipsia, Polyphagia, Polyuria, Other - Hematologic/Lymphatic Hematologic: absent: As Per HPI, Easy Bleeding, Easy Bruising, Lymphadenopathy, Other Past Patient History - Infectious Disease Hx of Infectious Diseases: None - Past Medical History & Family History Past Medical History?: Yes - Past Social History Smoking Status: Never Smoked - CARDIAC Hx Hypertension: Yes - NEUROLOGICAL Hx Dementia: Yes - ENDOCRINE/METABOLIC Hx Diabetes Mellitus Type 2: Yes - MUSCULOSKELETAL/RHEUMATOLOGICAL Hx Arthritis: Yes Hx Falls: Yes - PSYCHIATRIC Hx Substance Use: No - SURGICAL HISTORY Hx Cholecystectomy: Yes - ANESTHESIA Hx Anesthesia: Yes Hx Anesthesia Reactions: No Meds Home Medications: Home Medication List Medication Instructions Recorded Confirmed Type Sulfamethoxazole/Trimethoprim 1 tab PO Q12H #14 tab 08/09/18 Rx [Bactrim DS 800 mg-160 mg] Allergies/Adverse Reactions: Allergies Allergy/AdvReac Type Severity Reaction Status Date / Time Penicillins Allergy Verified 10/08/15 14:02 venom-honey bee Allergy Verified 10/08/15 14:02 [bee venom (honey bee)] - Medications Medications: Current Medications Enoxaparin Sodium (Lovenox) 40 mg SC DAILY [facility] Last Admin: 08/06/18 09:05 Dose: 40 mg Ketorolac Tromethamine (Toradol) 30 mg IVP Q6 PRN PRN Reason: Pain, Mild-Severe (1-10) Last Admin: 08/06/18 06:42 Dose: 30 mg Metformin HCl (Glucophage) 500 mg PO BID [facility] Last Admin: 08/06/18 17:41 Dose: 500 mg Pantoprazole Sodium (Protonix Inj) 40 mg IVP DAILY [facility] Last Admin: 08/06/18 09:05 Dose: 40 mg Rosuvastatin Calcium (Crestor) 10 mg PO HS [facility] Last Admin: 08/06/18 21:49 Dose: 10 mg Tramadol HCl (Ultram) 25 mg PO Q6H PRN PRN Reason: Pain, severe (8-10) Last Admin: 08/06/18 21:50 Dose: 25 mg Physical Exam - Constitutional Appears: Non-toxic - Head Exam Head Exam: NORMAL INSPECTION - Eye Exam Eye Exam: Normal appearance - ENT Exam ENT Exam: Mucous Membranes Moist - Neck Exam Neck exam: Positive for: Normal Inspection - Respiratory Exam Respiratory Exam: Clear to Auscultation Bilateral, NORMAL BREATHING PATTERN - Cardiovascular Exam Cardiovascular Exam: REGULAR RHYTHM, Systolic Murmur - GI/Abdominal Exam GI & Abdominal Exam: Normal Bowel Sounds - Rectal Exam Rectal Exam: Deferred - Extremities Exam Extremities exam: Positive for: normal inspection. Negative for: pedal edema - Back Exam Back exam: NORMAL INSPECTION - Neurological Exam Neurological exam: Alert, Oriented x3 - Psychiatric Exam Psychiatric exam: Normal Affect - Skin Skin Exam: Normal Color Results - Vital Signs Recent Vital Signs: Last Vital Signs Temp 98 F 08/06/18 23:35 Pulse 65 08/06/18 23:40 Resp 18 08/06/18 23:35 BP 127/59 L 08/06/18 23:35 Pulse Ox 96 08/06/18 23:35 - Labs Result Diagrams: 08/09/18 06:28 08/09/18 06:28 Labs: Laboratory Results - last 24 hr 08/05/18 08/05/18 08/06/18 07:24 07:24 10:58 WBC 5.4 RBC 3.65 L Hgb 10.5 L Hct 31.8 L MCV 87.0 MCH 28.7 MCHC 33.0 RDW 14.0 Plt Count 180 MPV 10.6 Neut % (Auto) 69.5 Lymph % (Auto) 21.0 Crenshaw % (Auto) 7.6 Eos % (Auto) 1.6 Baso % (Auto) 0.3 Neut # (Auto) 3.7 Lymph # (Auto) 1.1 Crenshaw # (Auto) 0.4 Eos # (Auto) 0.1 Baso # (Auto) 0.0 Sodium Potassium Chloride Carbon Dioxide Anion Gap BUN Creatinine Est GFR ( Amer) Est GFR (Non-Af Amer) POC Glucose (mg/dL) Random Glucose Hemoglobin A1c 6.8 H D Calcium Total Bilirubin AST ALT Alkaline Phosphatase Total Protein Total Protein (PEP) 8.4 H Albumin Globulin Albumin/Globulin Ratio 08/06/18 08/06/18 08/06/18 10:58 11:10 16:53 WBC RBC Hgb Hct MCV MCH MCHC RDW Plt Count MPV Neut % (Auto) Lymph % (Auto) Crenshaw % (Auto) Eos % (Auto) Baso % (Auto) Neut # (Auto) Lymph # (Auto) Crenshaw # (Auto) Eos # (Auto) Baso # (Auto) Sodium 137 Potassium 4.2 Chloride 105 Carbon Dioxide 26 Anion Gap 10 BUN 31 H Creatinine 1.4 H Est GFR ( Amer) 44 Est GFR (Non-Af Amer) 36 POC Glucose (mg/dL) 105 90 Random Glucose 104 D Hemoglobin A1c Calcium 9.2 Total Bilirubin 0.5 AST 25 ALT < 6 L D Alkaline Phosphatase 60 Total Protein 9.1 H Total Protein (PEP) Albumin 3.9 Globulin 5.2 H Albumin/Globulin Ratio 0.8 L 08/06/18 08/07/18 08/07/18 20:50 06:17 07:27 WBC RBC Hgb Hct MCV MCH MCHC RDW Plt Count MPV Neut % (Auto) Lymph % (Auto) Crenshaw % (Auto) Eos % (Auto) Baso % (Auto) Neut # (Auto) Lymph # (Auto) Crenshaw # (Auto) Eos # (Auto) Baso # (Auto) Sodium 135 Potassium 4.1 Chloride 103 Carbon Dioxide 24 Anion Gap 12 BUN 29 H Creatinine 1.1 Est GFR ( Amer) 58 Est GFR (Non-Af Amer) 48 POC Glucose (mg/dL) 108 96 Random Glucose 91 Hemoglobin A1c Calcium 9.0 Total Bilirubin 0.3 AST 24 ALT 7 L Alkaline Phosphatase 58 Total Protein 8.8 H Total Protein (PEP) Albumin 3.8 Globulin 5.0 H Albumin/Globulin Ratio 0.8 L - EKG Data EKG shows normal: Sinus rhythm Assessment & Plan (1) HTN (hypertension) Assessment and Plan: blood pressure control. would avoid afterload reduction given severe Status: Acute (2) Aortic stenosis Assessment and Plan: severe by eccho. given symptoms recommend cardiac cath. risk and benefits discussed in detail with the patient. she will discuss with her daughter Status: Chronic
[2018-08-07 08:14] LABS: BASO % 0.3 % (0.0-2.0); EOS # 0.1 K/uL (0.0-0.7); EOS % 2.7 % (0.0-4.0); LYMPH # 1.3 K/uL (1.0-4.3); LYMPH % 27.1 % (20.0-40.0); MEAN CELL VOLUME 87.1 fL (81.0-99.0); MEAN CORPUSCULAR HEMOGLOBIN 29.1 pg (27.0-31.0); MEAN CORPUSCULAR HGB CONC 33.4 g/dL (33.0-37.0); MEAN PLATELET VOLUME 10.8 fL (7.2-11.7); MONO # 0.4 K/uL (0.0-0.8); MONO % 8.4 % (0.0-10.0); NEUT % 61.5 % (50.0-75.0); NRBC % 0.2 % (0.0-2.0); RBC 3.78 Mil/uL (3.80-5.20); RED CELL DISTRIBUTION WIDTH 13.4 % (11.5-14.5)
--- NOTE | 2018-08-07 08:28 | CP.PCM.PN ---
"<Cornell Lopez - Last Filed: 08/07/18 17:41> Subjective - Date & Time of Evaluation Date of Evaluation: 08/07/18 Time of Evaluation: 09:52 - Subjective Subjective: PGY-[address] Deshpande service Patient is seen and examined at bedside this am. Patient continues to complain of chest pain and back pain, states it has slightly improved since he came, but states feeling tired to feel this chest pain. pain is nonradiating, located in middle of sternum, worse when breathing in. Reports one episode of vomiting yes terday. Denies n/v at this time. Otherwise, tolerating diet. No family at bedside at time of encounter. Denies fever, chills, shortness of breath, palpitations, abdominal pain, diarrhea, constipation or urinary problems. Objective - Vital Signs/Intake and Output Vital Signs (last 24 hours): Temp Pulse Resp BP Pulse Ox 97.8 F 66 20 129/74 98 08/07/18 08:02 08/07/18 08:02 08/07/18 08:02 08/07/18 08:02 08/07/18 08:02 Intake and Output: 08/07/18 08/07/18 06:59 18:59 Intake Total 300 Balance 300 - Medications Medications: Current Medications Enoxaparin Sodium (Lovenox) 40 mg SC DAILY [facility] Last Admin: 08/06/18 09:05 Dose: 40 mg Ketorolac Tromethamine (Toradol) 30 mg IVP Q6 PRN PRN Reason: Pain, Mild-Severe (1-10) Last Admin: 08/06/18 06:42 Dose: 30 mg Metformin HCl (Glucophage) 500 mg PO BID [facility] Last Admin: 08/06/18 17:41 Dose: 500 mg Pantoprazole Sodium (Protonix Inj) 40 mg IVP DAILY [facility] Last Admin: 08/06/18 09:05 Dose: 40 mg Rosuvastatin Calcium (Crestor) 10 mg PO HS [facility] Last Admin: 08/06/18 21:49 Dose: 10 mg Tramadol HCl (Ultram) 25 mg PO Q6H PRN PRN Reason: Pain, severe (8-10) Last Admin: 08/06/18 21:50 Dose: 25 mg - Labs Labs: 08/07/18 07:27 08/07/18 07:27 PT 12.4 SECONDS (9.7-12.2) H 08/04/18 19:26 INR 1.1 08/04/18 19:26 APTT 26 SECONDS (21-34) 08/04/18 19:26 - Constitutional Appears: Non-toxic - Head Exam Head Exam: ATRAUMATIC, NORMOCEPHALIC - Eye Exam Eye Exam: EOMI, Normal appearance - ENT Exam ENT Exam: Mucous Membranes Moist, Normal Exam - Neck Exam Neck Exam: Normal Inspection - Respiratory Exam Respiratory Exam: Chest Wall Tenderness, Clear to Ausculation Bilateral, NORMAL BREATHING PATTERN. absent: Rales, Rhonchi, Wheezes - Cardiovascular Exam Cardiovascular Exam: REGULAR RHYTHM, +S1, +S2, Murmur (murmur 4/6 located aortic valve area) - GI/Abdominal Exam GI & Abdominal Exam: Soft, Tenderness (right lower quadrant pain with deep palpations ), Normal Bowel Sounds. absent: Distended - Extremities Exam Extremities Exam: Full ROM, Normal Inspection - Back Exam Back Exam: NORMAL INSPECTION - Neurological Exam Neurological Exam: Alert, Awake - Psychiatric Exam Psychiatric exam: Anxious - Skin Skin Exam: Dry, Intact, Normal Color, Warm Assessment and Plan - Assessment and Plan (Free Text) Assessment: 77 year old female PMHx of RA, OA, DM, HTN, HLD admitted for evaluation and treatment of atypical chest pain, echo shows severe aortic stenosis, Cardiology on board. improved pain with pain medications. Plan: atypical Chest pain, back pain r/o ACS vs costochondritis vs aortic dissection improved chest pain, but pt continues to experience pain EKG - NSR, normal axis, no acute ST/T wave changes CXR (Admission): No Active Disease CT dissection study (Admission) - NEGATIVE for dissection. ECHO (08/05/18): Borderline LVH. EF 60-65%, Grade I-abnormal relaxation Pattern. Moderate Aortic Regurgitation, Severe valvular aortic Stenosis, Moderate Pulm. HTN. Troponin - NEGATIVE x 3 Meds: continue Tramadol 25mg PO Q6H PRN | Toradol 30mg Q6H PRN Aortic Stenosis (Severe) ECHO (08/05/18): Borderline LVH. EF 60-65%, Grade I-abnormal relaxation Pattern. Moderate Aortic Regurgitation, Severe valvular aortic Stenosis, Moderate Pulm. HTN. Cardiology Consulted (Dr. Puente) - severe aortic stenosis, will benefit from evaluation of coronary anatomy, patient wishes to wait for daughter before consenting to cardiac cath, avoid afterload reduction given . Will follow with suhail and Dr puente for plans for cardiac cath. Rt side frontal head lesion, possible fall hx of falls Head CT (Admission) - no evidence of acute intracranial pathology, diffuse age appropriate cerebral and cerebral atrophy fall risk protocol Physical Therapy Eval, F/U Recs -Pt without c/o increase pain at the chest. Gait was cautious, steady with the rw. Pt was encouraged to sit at the bedside chair but preferred to be back in bed. Endorsed back to nursing for care. elevated gamma globulin levels r/o monoclonal gammopathy SPEP & UPEP Ordered - pending results HTN patient is normotensive hold home losartan at this time monitor BP Diabetes M. Type II accuchecks ACHS continue home metformin 500mg PO BID Monitor and consider sliding scale. Hyperlipidemia crestor 10mg PO HS (Lipitor 20mg PO, not in formulary) Hx of gastritis patient take omeprazole 20mg PO daily protonix 40mg IVP Daily PPX DVT: heparin 5000 SC Q8, SCDs GI: protonix 40mg IVP daily Carb consistent diet Fall risk protocol PT/OT - f/u recs dispo: Followed with daughter Lucy Rose and patient in the afternoon, both agree to cardiac cath. Spoke with Cardiology Dr Puente, Dr Puente to speak with daughter, most likely planning for cardiac cath tomorrow. We will continue to follow cardiology plans and date/time of procedure. Daughter Lucy provided me with her phone number for any updates regarding patient - [phone]. Rinku Jeronimo is also a patient's press set up person, phone number [phone]. Plan discussed with Dr Charlee Lopez, PGY-1 <Ricki Deshpande - Last Filed: 08/08/18 09:03> Objective - Vital Signs/Intake and Output Vital Signs (last 24 hours): Temp Pulse Resp BP Pulse Ox 97.9 F 63 18 135/68 98 08/08/18 08:14 08/08/18 08:14 08/08/18 08:14 08/08/18 08:14 08/08/18 08:14 Intake and Output: 08/08/18 08/08/18 06:59 18:59 Intake Total 0 Balance 0 - Medications Medications: Current Medications Enoxaparin Sodium (Lovenox) 40 mg SC DAILY [facility] Last Admin: 08/07/18 10:04 Dose: 40 mg Ketorolac Tromethamine (Toradol) 30 mg IVP Q6 PRN PRN Reason: Pain, Mild-Severe (1-10) Last Admin: 08/06/18 06:42 Dose: 30 mg Metformin HCl (Glucophage) 500 mg PO BID [facility] Last Admin: 08/07/18 18:40 Dose: 500 mg Pantoprazole Sodium (Protonix Inj) 40 mg IVP DAILY [facility] Last Admin: 08/07/18 10:05 Dose: 40 mg Rosuvastatin Calcium (Crestor) 10 mg PO HS [facility] Last Admin: 08/07/18 22:24 Dose: 10 mg Tramadol HCl (Ultram) 25 mg PO Q6H PRN PRN Reason: Pain, severe (8-10) Last Admin: 08/06/18 21:50 Dose: 25 mg - Labs Labs: 08/08/18 07:58 08/08/18 07:58 PT 12.4 SECONDS (9.7-12.2) H 08/04/18 19:26 INR 1.1 08/04/18 19:26 APTT 26 SECONDS (21-34) 08/04/18 19:26 Attending/Attestation - Attestation I have personally seen and examined this patient.: Yes I have fully participated in the care of the patient.: Yes I have reviewed all pertinent clinical information, including history, physical exam and plan: Yes Notes (Text): seen and examined,patient came for chest pain,denies pain on examination,Has systolic murmur Echo showed severe aortic stenosis spoke to daughter at bedside Assessment and the plan discussed with the resident and I agree with the documentation"
[2018-08-07] MEDS: Enoxaparin 40 mg Syringe SC SCH (10:04)
--- NOTE | 2018-08-07 12:44 | CARD ---
APPROVED REPORT Date of service: 08/04/2018 EKG Measurement Heart [id number] <Conclusion> Normal sinus rhythm Normal ECG
--- NOTE | 2018-08-08 07:10 | CP.PCM.PN ---
<Cornell Lopez - Last Filed: 08/08/18 22:50> Subjective - Date & Time of Evaluation Date of Evaluation: 08/08/18 Time of Evaluation: 07:00 - Subjective Subjective: PGY-[address] Cheatham service Patient is seen and examined at bedside. Patient states pain in chest and back are improving. Daugthers at bedside. Patient is able to ambulate to the bathroom, and continues to tolerate food. As per nurse, patient is having a malodorous discharge from her vagina. As per daughter, patient was prescribed Diflucan and macrobid as outpatient but never received it. Patient denies fever, chills, n/v/d/c. No burning or pain at urination, states having increased urinary frequency. No other complaints at this time. Objective - Vital Signs/Intake and Output Vital Signs (last 24 hours): Temp Pulse Resp BP Pulse Ox 98.2 F 68 18 138/77 97 08/07/18 23:53 08/08/18 01:00 08/07/18 23:53 08/07/18 23:53 08/07/18 23:53 - Medications Medications: Current Medications Enoxaparin Sodium (Lovenox) [address] [facility] Last Admin: 08/07/18 10:04 Dose: 40 mg Ketorolac Tromethamine (Toradol) 30 mg IVP Q6 PRN PRN Reason: Pain, Mild-Severe (1-10) Last Admin: 08/06/18 06:42 Dose: 30 mg Metformin HCl (Glucophage) [address] [facility] Last Admin: 08/07/18 18:40 Dose: 500 mg Pantoprazole Sodium (Protonix Inj) [address] [facility] Last Admin: 08/07/18 10:05 Dose: 40 mg Rosuvastatin Calcium (Crestor) [address] [facility] Last Admin: 08/07/18 22:24 Dose: 10 mg Tramadol HCl (Ultram) 25 mg PO Q6H PRN PRN Reason: Pain, severe (8-10) Last Admin: 08/06/18 21:50 Dose: 25 mg - Labs Labs: 08/07/18 07:27 08/07/18 07:27 PT 12.4 SECONDS (9.7-12.2) H 08/04/18 19:26 INR 1.1 08/04/18 19:26 APTT 26 SECONDS (21-34) 08/04/18 19:26 - Constitutional Appears: Non-toxic, No Acute Distress - Head Exam Head Exam: ATRAUMATIC, NORMAL INSPECTION, NORMOCEPHALIC - Eye Exam Eye Exam: EOMI - ENT Exam ENT Exam: Mucous Membranes Moist, Normal Exam - Neck Exam Neck Exam: Full ROM, Normal Inspection - Respiratory Exam Respiratory Exam: Chest Wall Tenderness, Clear to Ausculation Bilateral, NORMAL BREATHING PATTERN. absent: Rales, Rhonchi, Wheezes, Respiratory Distress Additional comments: left 3rd to 4th ribs - Cardiovascular Exam Cardiovascular Exam: +S1, +S2, Murmur (systolic aortic murmur 4/6) - GI/Abdominal Exam GI & Abdominal Exam: Soft, Normal Bowel Sounds. absent: Distended, Tenderness Additional comments: no suprapubic tenderness - Extremities Exam Extremities Exam: Full ROM, Normal Inspection. absent: Pedal Edema, Tenderness - Back Exam Back Exam: NORMAL INSPECTION. absent: paraspinal tenderness, tenderness, vertebral tenderness - Neurological Exam Neurological Exam: Alert, Awake, Oriented x3 - Psychiatric Exam Psychiatric exam: Normal Affect, Normal Mood - Skin Skin Exam: Dry, Normal Color, Warm Assessment and Plan - Assessment and Plan (Free Text) Assessment: 77 year old female PMHx of RA, OA, DM, HTN, HLD admitted for evaluation and treatment of atypical chest pain, echo shows severe aortic stenosis, Cardiology on board. improved pain with pain medications. possible cath for further eval of aortic stenosis and cardiac vascular anatomy. Plan: atypical Chest pain, back pain r/o ACS vs costochondritis vs aortic dissection improved chest pain, but pt continues to experience pain upon palpation EKG - NSR, normal axis, no acute ST/T wave changes CXR (Admission): No Active Disease CT dissection study (Admission) - NEGATIVE for dissection. ECHO (08/05/18): Borderline LVH. EF 60-65%, Grade I-abnormal relaxation Pattern. Moderate Aortic Regurgitation, Severe valvular aortic Stenosis, Moderate Pulm. HTN. Troponin - NEGATIVE x 3 Meds: continue Tramadol 25mg PO Q6H PRN Rib series - f/u results - to rule out rib fractures Aortic Stenosis (Severe) ECHO (08/05/18): Borderline LVH. EF 60-65%, Grade I-abnormal relaxation Pattern. Moderate Aortic Regurgitation, Severe valvular aortic Stenosis, Moderate Pulm. HTN. Cardiology Consulted (Dr. Puente) - follow up recs for possible cardiac cath Rt side frontal head lesion, possible fall hx of falls Head CT (Admission) - no evidence of acute intracranial pathology, diffuse age appropriate cerebral and cerebral atrophy fall risk protocol Physical Therapy Eval, F/U Recs -Pt was able to transfer uses UE to rise and lower self safely. Pt preferred to ambulate without assistive device but unsteady. Gait was steadier with the rw. Pt was encouraged to sit at the bedside chair. Vaginal discharge U/A- f/u start Diflucant 150mg PO daily elevated gamma globulin levels r/o monoclonal gammopathy SPEP & UPEP Ordered - pending results HTN patient is normotensive hold home losartan at this time monitor BP Diabetes M. Type II accuchecks ACHS hold metformin 500mg PO BID for possible cath Monitor Hyperlipidemia crestor 10mg PO HS (Lipitor 20mg PO, not in formulary) Hx of gastritis patient take omeprazole 20mg PO daily protonix 40mg IVP Daily PPX DVT: lovenox 40mg SC Daily , SCDs GI: protonix 40mg IVP daily Carb consistent diet Fall risk protocol PT/OT - f/u recs Plan discussed with Dr Linden Lopez, PGY-1 <Betito Cheatham - Last Filed: 08/10/18 17:43> Objective - Vital Signs/Intake and Output Vital Signs (last 24 hours): Temp Pulse Resp BP Pulse Ox 97.3 F L 68 20 123/50 L 100 08/09/18 08:13 08/09/18 11:56 08/09/18 08:13 08/09/18 08:13 08/09/18 08:13 - Labs Labs: 08/09/18 06:28 08/09/18 06:28 PT 12.4 SECONDS (9.7-12.2) H 08/04/18 19:26 INR 1.1 08/04/18 19:26 APTT 26 SECONDS (21-34) 08/04/18 19:26 Attending/Attestation - Attestation I have personally seen and examined this patient.: Yes I have fully participated in the care of the patient.: Yes I have reviewed all pertinent clinical information, including history, physical exam and plan: Yes Notes (Text): atypical Chest pain costochondritis Aortic Stenosis (Severe) Rt side frontal head lesion, possible fall hx of falls no evidence of acute intracranial pathology, diffuse age appropriate cerebral and cerebral atrophy Vaginal discharge start Diflucant 150mg PO daily
[2018-08-08 08:14] LABS: BASO % 0.4 % (0.0-2.0); EOS # 0.1 K/uL (0.0-0.7); EOS % 2.3 % (0.0-4.0); HEMOGLOBIN 10.8 g/dL (11.0-16.0); LYMPH # 1.2 K/uL (1.0-4.3); LYMPH % 24.5 % (20.0-40.0); MEAN CELL VOLUME 86.8 fL (81.0-99.0); MEAN CORPUSCULAR HEMOGLOBIN 28.5 pg (27.0-31.0); MEAN CORPUSCULAR HGB CONC 32.9 g/dL (33.0-37.0); MEAN PLATELET VOLUME 10.8 fL (7.2-11.7); MONO # 0.4 K/uL (0.0-0.8); NEUT # 3.3 K/uL (1.8-7.0); NEUT % 64.8 % (50.0-75.0); NRBC % 0.1 % (0.0-2.0); RBC 3.79 Mil/uL (3.80-5.20); RED CELL DISTRIBUTION WIDTH 13.6 % (11.5-14.5); WHITE BLOOD COUNT 5.1 K/uL (4.8-10.8)
[2018-08-08 08:43] LABS: ALB/GLOB RATIO 0.8 (1.0-2.1); CALCIUM 9.3 mg/dl (8.6-10.4)
[2018-08-08] MEDS: Enoxaparin 40 mg Syringe SC SCH (10:24)
[2018-08-08] MEDS: Tramadol 25 mg PO PRN (10:24)
[2018-08-08 15:17] LABS: ALPHA-1 GLOBULIN 0.8 %
[2018-08-08] MEDS ORDERED: Lidocaine Hydrochloride 10 ML INJ ONE (17:27)
[2018-08-08] MEDS ORDERED: Midazolam 2 MG/2 ML VIAL ONE (17:36)
[2018-08-08] MEDS ORDERED: Iodixanol 320 MG/ML 100 ML BOTTLE IV ONE ×2 (17:42→18:20)
[2018-08-08 18:06] LABS: ARTERIAL BLOOD GAS HCO3 24.5 mmol/L (21-28); ARTERIAL BLOOD GAS HEMOGLOBIN 10.6 g/dL (11.7-17.4); ARTERIAL BLOOD GAS PCO2 43 mm/Hg (35-45); ARTERIAL BLOOD GAS PH 7.37 (7.35-7.45); ARTERIAL BLOOD GAS PO2 196 mm/Hg (80-100); ARTERIAL BLOOD GAS TCO2 26.2 mmol/L (22-28)
[2018-08-08 18:10] LABS: VENOUS BLOOD GAS BASE EXCESS -1.5 mmol/L (0.0-2.0); VENOUS BLOOD GAS PCO2 47 mmHg (40-60); VENOUS BLOOD GAS PO2 43 mm/Hg (30-55); VENOUS BLOOD PH 7.33 (7.32-7.43)
--- NOTE | 2018-08-08 18:57 | RAD ---
Date of service: 08/08/2018 PROCEDURE: Radiographs of the chest and bilateral ribs HISTORY: chest tenderness, possible fall, r/o rib fractures COMPARISON: CT dissection protocol performed 08/04/18 TECHNIQUE: Frontal radiograph of the chest and multiple oblique radiographs of the bilateral ribs were obtained. FINDINGS: RIGHT RIBS: No appreciable displaced right rib fracture. LEFT RIBS: No appreciable displaced left rib fracture. LUNGS: No focal consolidation. Please note that chest x-ray has limited sensitivity for the detection of pulmonary masses. PLEURA: No significant pleural effusion. CARDIOVASCULAR: Cardiomegaly. Atherosclerotic calcifications of an ectatic aorta. OTHER FINDINGS: Right upper quadrant surgical clips. Osseous demineralization. Degenerative changes of the spine. IMPRESSION: Cardiomegaly. No focal consolidation. No appreciable displaced rib fracture.
[2018-08-08] MEDS ORDERED: Sodium Chloride 0.9% 1,000 ML IV SCH (19:30)
--- NOTE | 2018-08-08 19:40 | CP.PCM.PN ---
Subjective - Date & Time of Evaluation Date of Evaluation: 08/08/18 Time of Evaluation: 18:00 - Subjective Subjective: cardaic cath perfomred report dictated. Moderate to severe , Moderate AI. nonbstructive CAD Normal LV function. Plan: medical therapy and blood pressure follow up Outpatient follow up Objective - Vital Signs/Intake and Output Vital Signs (last 24 hours): Temp Pulse Resp BP Pulse Ox 97.6 F 66 20 156/69 H 99 08/08/18 16:00 08/08/18 16:00 08/08/18 16:00 08/08/18 16:00 08/08/18 16:00 Intake and Output: 08/08/18 08/09/18 18:59 06:59 Intake Total 0 Balance 0 - Medications Medications: Current Medications Enoxaparin Sodium (Lovenox) 40 mg SC DAILY [facility] Last Admin: 08/08/18 10:24 Dose: Not Given Fluconazole (Diflucan) 150 mg PO Q24H CAROLEE; Protocol Last Admin: 08/08/18 16:23 Dose: Not Given Metformin HCl (Glucophage) 500 mg PO BID [facility] Last Admin: 08/08/18 10:24 Dose: 500 mg Pantoprazole Sodium (Protonix Inj) 40 mg IVP DAILY [facility] Last Admin: 08/08/18 10:24 Dose: 40 mg Rosuvastatin Calcium (Crestor) 10 mg PO HS [facility] Last Admin: 08/07/18 22:24 Dose: 10 mg Tramadol HCl (Ultram) 25 mg PO Q6H PRN PRN Reason: Pain, severe (8-10) Last Admin: 08/08/18 10:24 Dose: 25 mg - Labs Labs: 08/08/18 07:58 08/08/18 07:58 PT 12.4 SECONDS (9.7-12.2) H 08/04/18 19:26 INR 1.1 08/04/18 19:26 APTT 26 SECONDS (21-34) 08/04/18 19:26
--- NOTE | 2018-08-08 20:58 | CARD ---
APPROVED REPORT Date of service: 08/05/2018 EKG Measurement Heart [id number] <Conclusion> Normal sinus rhythm Moderate voltage criteria for LVH
--- NOTE | 2018-08-09 02:11 | CARDCATH ---
PROCEDURE DATE: 08/08/2018 REFERRING PHYSICIAN: Jaylon Elias MD INDICATIONS: Evaluation of aortic stenosis. COMPLICATIONS: None. HISTORY: As follows: The patient is a 77-year-old female with a past medical history of hypertension, diabetes mellitus who presents with unstable angina and dyspnea on exertion. Echocardiogram suggestive of significant aortic stenosis. The patient is referred for cardiac catheterization. DESCRIPTION: Informed consent was obtained and discussed with the family and the patient. The conscious sedation was given, and the right groin was anesthetized with 2% lidocaine solution. A micropuncture needle was used to access the right common femoral artery, and a 6-Guinean sheath was then placed. A 7-Guine[place] sheath was placed into the right common femoral vein. Right heart catheterization was performed. Left heart catheterization and coronary angiography was then performed. All catheters were removed. FINDINGS: Hemodynamics: The right atrial pressure is 1 mmHg, right ventricular pressure is 26/2, pulmonary artery pressure is 25/1 with a mean of 10 mmHg, pulmonary capillary wedge pressure is 2. The central aortic pressure is 137/50, the left ventricular pressure is 160/6. The calculated Mukund cardiac output is 6.49 with a cardiac index of 4.33. The aortic valve area is 1.13 sq cm. Coronaries: Left main, mild diffuse disease, left anterior descending artery, diffuse atherosclerosis. There is an 80% stenosis of first diagonal branch (with a very small caliber vessel). Left circumflex; mild luminal irregularities. Right coronary artery vessel arises from the right sinus of Valsalva. Right dominant circulation. Mild diffuse disease. Normal Left ventricular systolic function. Left ventricular ejection fraction is 55% to 60%. There is pjpwmowb-fl-aernrt aortic stenosis and moderate aortic regurgitation. CONCLUSIONS: 1. Moderate significant single vessel coronary artery disease in a very small diagonal branch. 2. Normal left ventricular systolic function. 3. Dewnnvks-sv-hqgtqn aortic stenosis and moderate aortic regurgitation. RECOMMENDATIONS: The patient will be placed on optimal medical therapy. Left ventricle is not dilated at this time. The patient does not have clear indication for aortic valve surgery. She will be monitored in the outpatient setting with surveillance echocardiogram and close monitoring of the symptoms. Indications for valve replacement were discussed with the family and patient in detail. Catia Puente MD [facility] # [id number]
[2018-08-09] MEDS: Tramadol 25 mg PO PRN (04:10)
[2018-08-09 04:26] LABS: SQUAMOUS EPITHIAL < 1 /hpf (0-5); URINE BILIRUBIN NEGATIVE (NEGATIVE); URINE BLOOD 2+ (NEGATIVE); URINE CLARITY Clear (Clear); URINE COLOR Yellow (YELLOW); URINE GLUCOSE (UA) NORMAL (Normal); URINE LEUKOCYTE ESTERASE 2+ Leu/uL (Negative); URINE PROTEIN NEGATIVE (NEGATIVE); URINE UROBILINOGEN NORMAL mg/dL (0.2-1.0)
[2018-08-09 06:49] LABS: ALB/GLOB RATIO 0.8 (1.0-2.1); ALBUMIN 3.8 g/dL (3.5-5.0); ALT/SGPT 7 U/L (9-52); AST/SGOT 26 U/L (14-36); BLOOD UREA NITROGEN 28 mg/dL (7-17); CALCIUM 9.2 mg/dl (8.6-10.4); GFR NON-AFRICAN AMERICAN 54
[2018-08-09 07:24] LABS: BASO % 0.3 % (0.0-2.0); EOS # 0.1 K/uL (0.0-0.7); EOS % 2.8 % (0.0-4.0); HEMOGLOBIN 10.5 g/dL (11.0-16.0); LYMPH # 1.1 K/uL (1.0-4.3); LYMPH % 21.4 % (20.0-40.0); MEAN CELL VOLUME 86.7 fL (81.0-99.0); MEAN CORPUSCULAR HEMOGLOBIN 28.9 pg (27.0-31.0); MEAN CORPUSCULAR HGB CONC 33.3 g/dL (33.0-37.0); MEAN PLATELET VOLUME 10.9 fL (7.2-11.7); MONO # 0.5 K/uL (0.0-0.8); MONO % 10.1 % (0.0-10.0); NEUT # 3.2 K/uL (1.8-7.0); NEUT % 65.4 % (50.0-75.0); RBC 3.63 Mil/uL (3.80-5.20); RED CELL DISTRIBUTION WIDTH 13.6 % (11.5-14.5); WHITE BLOOD COUNT 4.9 K/uL (4.8-10.8)
[2018-08-09 08:16] VITALS: BP 123/50; RESP 20; TEMP 97.3; O2SAT 100
[2018-08-09] MEDS: Enoxaparin 40 mg Syringe SC SCH (09:07)
[2018-08-09 11:57] VITALS: PULSE 68
[2018-08-09 12:15] LABS: ALBUMIN (PEP) 3.5 g/dL (3.8-4.8); ALPHA-1-GLOBULIN (PEP) 0.3 g/dL (0.2-0.3)
--- NOTE | 2018-08-09 13:04 | CP.PCM.DIS ---
Provider - Provider Date of Admission: 08/06/18 10:57 Attending physician: Betito Cheatham MD Primary care physician: Dr. Simon Consults: 08/06/18 10:55 Cardiology Consult Routine Comment: Consulting Provider: Catia Puente Consulting Physician: Catia Puente Reason for Consult: Severe Aortic Stenosis, Grade I Relaxation pattern on ECHO. 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 Comment: Physician Instructions: Reason For Exam: chest pain Social Work Referral Routine Comment: needs help at home Physician Instructions: Reason For Exam: needs help at home Time Spent in preparation of Discharge (in minutes): 29 Diagnosis - Discharge Diagnosis (1) Atypical chest pain Status: Ruled-out Comment: likely costochondritis 2/2 cough (2) Aortic stenosis Status: Chronic Comment: newly diagnosed (3) UTI (urinary tract infection) Status: Acute Hospital Course - Lab Results Lab Results: Most Recent Lab Values WBC 4.9 K/uL (4.8-10.8) 08/09/18 06:28 RBC 3.63 Mil/uL (3.80-5.20) L 08/09/18 06:28 Hgb 10.5 g/dL (11.0-16.0) L 08/09/18 06:28 Hct 31.5 % (34.0-47.0) L 08/09/18 06:28 MCV 86.7 fL (81.0-99.0) 08/09/18 06:28 MCH 28.9 pg (27.0-31.0) 08/09/18 06:28 MCHC 33.3 g/dL (33.0-37.0) 08/09/18 06:28 RDW 13.6 % (11.5-14.5) 08/09/18 06:28 Plt Count 188 K/uL (130-400) 08/09/18 06:28 MPV 10.9 fL (7.2-11.7) 08/09/18 06:28 Neut % (Auto) 65.4 % (50.0-75.0) 08/09/18 06:28 Lymph % (Auto) 21.4 % (20.0-40.0) 08/09/18 06:28 [place] % (Auto) 10.1 % (0.0-10.0) H 08/09/18 06:28 Eos % (Auto) 2.8 % (0.0-4.0) 08/09/18 06:28 Baso % (Auto) 0.3 % (0.0-2.0) 08/09/18 06:28 Neut # (Auto) 3.2 K/uL (1.8-7.0) 08/09/18 06:28 Lymph # (Auto) 1.1 K/uL (1.0-4.3) 08/09/18 06:28 [place] # (Auto) 0.5 K/uL (0.0-0.8) 08/09/18 06:28 Eos # (Auto) 0.1 K/uL (0.0-0.7) 08/09/18 06:28 Baso # (Auto) 0.0 K/uL (0.0-0.2) 08/09/18 06:28 PT 12.4 SECONDS (9.7-12.2) H 08/04/18 19:26 INR 1.1 08/04/18 19:26 APTT 26 SECONDS (21-34) 08/04/18 19:26 Puncture Site Fa 08/08/18 18:00 pCO2 43 mm/Hg (35-45) 08/08/18 18:00 pO2 43 mm/Hg (30-55) 08/08/18 18:05 HCO3 24.5 mmol/L (21-28) 08/08/18 18:00 ABG pH 7.37 (7.35-7.45) 08/08/18 18:00 ABG Total CO2 26.2 mmol/L (22-28) 08/08/18 18:00 ABG O2 Saturation 100.0 % (95-98) H 08/08/18 18:00 ABG Base Excess -0.5 mmol/L (-2.0-3.0) 08/08/18 18:00 ABG Hemoglobin 10.6 g/dL (11.7-17.4) L 08/08/18 18:00 ABG Carboxyhemoglobin 1.7 % (0.5-1.5) H 08/08/18 18:00 POC ABG HHb (Measured) 0.0 % (0.0-5.0) 08/08/18 18:00 ABG Methemoglobin 1.4 % (0.0-3.0) 08/08/18 18:00 Iam Test Na 08/08/18 18:00 VBG pH 7.33 (7.32-7.43) 08/08/18 18:05 VBG pCO2 47 mmHg (40-60) 08/08/18 18:05 VBG HCO3 23.1 mmol/L 08/08/18 18:05 VBG Total CO2 26.2 mmol/L (22-28) 08/08/18 18:05 VBG O2 Sat (Calc) 82.0 % (40-65) H 08/08/18 18:05 VBG Base Excess -1.5 mmol/L (0.0-2.0) L 08/08/18 18:05 VBG Potassium 3.9 mmol/L (3.6-5.2) 08/08/18 18:05 A-a O2 Difference -100.0 mm/Hg 08/08/18 18:00 Respiratory Index -0.5 08/08/18 18:00 Hgb O2 Saturation 96.9 % (95.0-98.0) 08/08/18 18:00 Sodium 141.0 mmol/l (132-148) 08/08/18 18:05 Chloride 111.0 mmol/L (98-107) H 08/08/18 18:05 Glucose 69 mg/dl (65-105) 08/08/18 18:05 Lactate 0.5 mmol/L (0.7-2.1) L 08/08/18 18:05 FiO2 21.0 % 08/08/18 18:05 Sodium 138 mmol/L (132-148) 08/09/18 06:28 Potassium 4.5 mmol/L (3.6-5.2) 08/09/18 06:28 Chloride 105 mmol/L (98-107) 08/09/18 06:28 Carbon Dioxide 27 mmol/L (22-30) 08/09/18 06:28 Anion Gap 11 (10-20) 08/09/18 06:28 BUN 28 mg/dL (7-17) H 08/09/18 06:28 Creatinine 1.0 mg/dL (0.7-1.2) 08/09/18 06:28 Est GFR ( Amer) > 60 08/09/18 06:28 Est GFR (Non-Af Amer) 54 08/09/18 06:28 POC Glucose (mg/dL) 183 mg/dL (65-110) H 08/09/18 11:02 Random Glucose 93 mg/dL (65-105) 08/09/18 06:28 Hemoglobin A1c 6.8 % (4.2-6.5) H D 08/05/18 07:24 Calcium 9.2 mg/dl (8.6-10.4) 08/09/18 06:28 Total Bilirubin 0.3 mg/dL (0.2-1.3) 08/09/18 06:28 AST 26 U/L (14-36) 08/09/18 06:28 ALT 7 U/L (9-52) L D 08/09/18 06:28 Alkaline Phosphatase 58 U/L (38-126) 08/09/18 06:28 Total Creatine Kinase 90 U/L (30-135) 08/04/18 19:26 CK-MB (Mass) 1.07 ng/mL (0.0-3.38) 08/04/18 19:26 Troponin I 0.0200 ng/mL (0.00-0.120) 08/05/18 14:35 NT-Pro-B Natriuret Pep 532 pg/mL (0-900) 08/04/18 19:26 Total Protein 8.4 g/dL (6.3-8.3) H 08/09/18 06:28 Total Protein (PEP) 8.4 g/dL (6.1-8.1) H 08/05/18 07:24 Albumin 3.8 g/dL (3.5-5.0) 08/09/18 06:28 Albumin (PEP) 3.5 g/dL (3.8-4.8) L 08/05/18 07:24 Globulin 4.6 gm/dL (2.2-3.9) H 08/09/18 06:28 Albumin/Globulin Ratio 0.8 (1.0-2.1) L 08/09/18 06:28 Qwsjh-5-Yunjazeas 0.8 % 08/05/18 20:46 Qjivv-1-Rmwicowlc 5.8 % 08/05/18 20:46 Beta Globulins 15.9 % 08/05/18 20:46 Ctml-2-Pmkqenbg 0.3 g/dL (0.4-0.6) L 08/05/18 07:24 Kuvq-5-Micvbsmw 0.3 g/dL (0.2-0.5) 08/05/18 07:24 Gamma Globulins 38.4 % 08/05/18 20:46 Abnorm Protein Band 1 TEST NOT PERFORMED 08/05/18 07:24 Abnorm Protein Band 2 TEST NOT PERFORMED 08/05/18 07:24 Abnorm Protein Band 3 TEST NOT PERFORMED 08/05/18 07:24 Triglycerides 75 mg/dL (0-149) D 08/05/18 07:24 Cholesterol 213 mg/dL (0-199) H 08/05/18 07:24 LDL Cholesterol Direct 147 mg/dL (0-129) H 08/05/18 07:24 HDL Cholesterol 40 mg/dL (30-70) 08/05/18 07:24 Lipase 134 U/L (23-300) 08/04/18 21:45 Venous Blood Potassium 3.9 mmol/L (3.6-5.2) 08/08/18 18:05 Urine Color Yellow (YELLOW) 08/09/18 04:18 Urine Clarity Clear (Clear) 08/09/18 04:18 Urine pH 5.0 (5.0-8.0) 08/09/18 04:18 Ur Specific [place] 1.015 (1.003-1.030) 08/09/18 04:18 Urine Protein Negative mg/dL (NEGATIVE) 08/09/18 04:18 Urine Glucose (UA) Normal mg/dL (Normal) 08/09/18 04:18 Urine Ketones Negative mg/dL (NEGATIVE) 08/09/18 04:18 Urine Blood 2+ (NEGATIVE) H 08/09/18 04:18 Urine Nitrate Negative (NEGATIVE) 08/09/18 04:18 Urine Bilirubin Negative (NEGATIVE) 08/09/18 04:18 Urine Urobilinogen Normal mg/dL (0.2-1.0) 08/09/18 04:18 Ur Leukocyte Esterase 2+ Nakia/uL (Negative) H 08/09/18 04:18 Urine WBC (Auto) 9 /hpf (0-5) H 08/09/18 04:18 Urine RBC (Auto) 5 /hpf (0-3) H 08/09/18 04:18 Ur Squamous Epith Cells < 1 /hpf (0-5) 08/09/18 04:18 Ur Random Creatinine 160 mg/dL (20-275) 08/05/18 20:46 U Random Total Protein 363 mg/g creat (21-161) H 08/05/18 20:46 Urine Albumin (PEP) 39.0 % 08/05/18 20:46 Ur Protein Fractions See note 08/05/18 20:46 JANICE & SPEP Interp See note 08/05/18 07:24 - Hospital Course Hospital Course: HPI on admission: "Patient is 77 year old female with pmhx of RA, OA, DM, HTN, HLD, catarats bilateral eyes that came to the ED today for chest pain and back pain that started at 4 pm. Chest pain is located on right and left side of chest, reproducible with palpation and worsens with breathing, Daughter Lucy is at bedside at time of encounter, states her mother has been at home for the past few days, and decided to leave the house today and walk in the cold. Daughter noticed patient had a new bruise like lesion in her right frontal area of face and in right knee after she came back home. Patient denies falling, states she has fallen in the past but a long time ago. Patient admits to dryness in both eyes and mouth. Denies fever, chills, headaches, abdominal pain, cough, n/v/d/c." Discharge Exam - Head Exam Head Exam: ATRAUMATIC, NORMAL INSPECTION, NORMOCEPHALIC - Eye Exam Eye Exam: EOMI, Normal appearance - ENT Exam ENT Exam: Mucous Membranes Moist - Neck Exam Neck exam: Normal Inspection - Respiratory Exam Respiratory Exam: Rhonchi, NORMAL BREATHING PATTERN, UNREMARKABLE. absent: Respiratory Distress - Cardiovascular Exam Cardiovascular Exam: REGULAR RHYTHM. absent: Tachycardia - GI/Abdominal Exam GI & Abdominal Exam: Normal Bowel Sounds, Unremarkable. absent: Distended - Extremities Exam Extremities exam: normal capillary refill, pedal pulses present Additional comments: RLE: cardiac cath post check groin site bandaged, clean/dry/intact No RLE edema, splinterhemorrhage, ecchymosis, hematoma minimally tender to palpation at site - Neurological Exam Neurological exam: Alert - Psychiatric Exam Psychiatric exam: Normal Affect, Normal Mood - Skin Skin Exam: Dry, Intact, Normal Color, Warm Discharge Plan - Discharge Medications Prescriptions: Sulfamethoxazole/Trimethoprim [Bactrim DS 800 mg-160 mg] 1 tab PO Q12H #14 tab - Follow Up Plan Condition: GOOD Disposition: HOME/ ROUTINE Instructions: Urinary Tract Infection, Adult (DC), Sulfamethoxazole and Trimethoprim Additional Instructions: Patient is stable for discharge home. Patient is instructed to resume all home medications taken prior to hospitalization with the exception of metformin which may be resumed tomorrow morning. Patient will be discharged with a prescription for an antibiotic to treat a urinary tract infection. Patient is to complete entire course of antibiotics as prescribed. Patient is instructed to follow up with primary medical doctor or in clinic if patient does not have a primary medical doctor, within 2 weeks of discharge to check that urinary tract infection has resolved. Patient instructed to follow up with primary medical doctor or clinic within 2 weeks of discharge for evaluation. Patient is instructed to follow up with Dr. Puente within 2 weeks of discharge. Patient instructed to return to ED with any worsening of symptoms. El paciente se encuentra estable para el teto domiciliaria. Se instruye al paciente para que reanude todos los medicamentos caseros tomados antes de la hospitalizacin. El paciente ser dado de teto con lizandro receta de un antibitico para tratar lizandro infeccin del tracto urinario. El paciente debe completar el curso completo de antibiticos segn lo prescrito. Se le indica al paciente que devin un seguimiento con loaiza mdico [place] o en la clnica si no tiene un mdico [place], dentro de las 2 semanas posteriores al teto para verificar que la infeccin del tracto urinario se haya resuelto. El paciente recibe instrucciones de seguimiento con un mdico [place] o lizandro clnica dentro de las 2 semanas posteriores al teto para loaiza evaluacin. Se le indica al paciente que realice un seguimiento con el Dr. Puente dentro de las 2 semanas posteriores al teto. Paciente instruido para regresar a la ED con cualquier empeoramiento de los sntomas. Referrals: Catia Puente MD [Staff Provider] - Viviana Alanis MD [Staff Provider] -
== END 2018-08-09 14:13 | disposition home or self-care (01) | DRG 206 ==
LOC: C.ER 18:02 → C.9E 21:52 → C.5S 22:16 → OBSVTOIN 08-06 10:57
PROVIDERS: ADMIT Internal Medicine; ATTEND Internal Medicine
PROC: 4A023N8 Measurement of Cardiac Sampling and Pressure, Bilateral, Percutaneous Approach (ICD-10-PCS; principal; 2018-08-08)
PROC: B2161ZZ Fluoroscopy of Right and Left Heart using Low Osmolar Contrast (ICD-10-PCS; 2018-08-08)
PROC: B2111ZZ Fluoroscopy of Multiple Coronary Arteries using Low Osmolar Contrast (ICD-10-PCS; 2018-08-08)
DX: M94.0 Chondrocostal junction syndrome [Tietze] (principal); I35.2 Nonrheumatic aortic (valve) stenosis with insufficiency; I25.10 Atherosclerotic heart disease of native coronary artery without angina pectoris; N39.0 Urinary tract infection, site not specified; R05 Cough; I10 Essential (primary) hypertension; E11.9 Type 2 diabetes mellitus without complications; S00.83XA Contusion of other part of head, initial encounter; M06.9 Rheumatoid arthritis, unspecified; M19.90 Unspecified osteoarthritis, unspecified site; M81.0 Age-related osteoporosis without current pathological fracture; E78.5 Hyperlipidemia, unspecified; F03.90 Unspecified dementia, unspecified severity, without behavioral disturbance, psychotic disturbance, mood disturbance, and anxiety; W19.XXXA Unspecified fall, initial encounter; Y92.9 Unspecified place or not applicable; Z91.81 History of falling; Z83.3 Family history of diabetes mellitus; Z90.49 Acquired absence of other specified parts of digestive tract; Z88.0 Allergy status to penicillin